=== PATIENT | female | born 1995 | race Caucasian/White ===

== ENCOUNTER 2021-10-09 10:11 | Outpatient (REF) | payer OTHER, SELFPAY ==
[2021-10-09 11:26] LABS: Appearance Urine CLEAR; Color Urine YELLOW; Glucose Urine UA NEG (NEG); Leukocyte Esterase Urine NEG (NEG); Nitrite Urine NEG (NEG); PH 5.5 (5.0-8.0); Specific Gravity - Urine >= 1.030 (1.005-1.025); Urine Blood NEG (NEG); Urine Ketones NEG (NEG); Urine Protein NEG (NEG-TRACE)
[2021-10-09 12:06] LABS: Alanine Aminotransferase 31 U/L (0-31); Albumin Level 4.4 g/dL (3.5-5.0); Alkaline Phosphatase 82 U/L (39-117); Anion Gap 14 (12-20); Aspartate Amino Transferase 30 U/L (5-31); Bilirubin Total 0.4 mg/dL (0.0-1.0); Blood Urea Nitrogen 12 mg/dL (9-16); Calcium 9.6 mg/dL (8.4-10.2); Carbon Dioxide 24 mmol/L (22-29); Chloride 107 mmol/L (96-108); Cholesterol 186 mg/dL; Estimated Glomerular Filt Rate > 60; Glucose Fasting 82 mg/dL (60-99); HDL Cholesterol 56 mg/dL; Iron 28 mcg/dL (30-160); LDL Cholesterol Calculated 117 mg/dl; Percent Iron Saturation 6 % (15-50); Potassium 4.9 mmol/L (3.3-5.1); Sodium 140 mmol/L (135-145); Total Iron Binding Capacity 482 mcg/dL (228-428); Total Protein 7.8 g/dL (6.5-8.0); Triglycerides 68 mg/dL; Unsaturated Iron Binding 454 ug/dL
[2021-10-09 12:10] LABS: TSH reflex Free T4 1.31 uIU/mL (0.32-4.0)
== END 2021-10-09 10:12 | disposition home or self-care (01) ==
LOC: HO.LAB 10:11
PROVIDERS: PCP Family Medicine; Visit Provider Family Medicine
DX: Z00.00 Encounter for general adult medical examination without abnormal findings (principal); E66.01 Morbid (severe) obesity due to excess calories
CPT/HCPCS: 36415; 80053; 80061; 81003; 83540; 84443

== ENCOUNTER 2021-10-28 17:21 | Outpatient (REF) | payer OTHER, SELFPAY ==
--- NOTE | ~2021-10-28 | XR_ITS ---
EXAMINATION: XR ABDOMEN KUB CLINICAL INDICATION: Diarrhea COMPARISON: None TECHNIQUE: AP view of the abdomen. FINDINGS: The bowel gas pattern is normal with no evidence of ileus or obstruction. No unusual soft tissue calcifications are noted. The bones are unremarkable. XR/XR KUB IMPRESSION: Unremarkable examination.
--- NOTE | ~2021-10-28 | XR_ITS ---
EXAMINATION: BILATERAL KNEE X-RAY CLINICAL INFORMATION: Pain COMPARISON: None TECHNIQUE: 2 views of each knee FINDINGS: Left: Bone alignment is normal. No fracture or dislocation is seen. The joint spaces are normal. There is no joint effusion. Right: Bone alignment is normal. No fracture or dislocation is seen. The joint spaces are normal. There is no joint effusion. XR/XR knee RT 2V IMPRESSION: Normal knees.
--- NOTE | ~2021-10-28 | XR_ITS ---
EXAMINATION: BILATERAL KNEE X-RAY CLINICAL INFORMATION: Pain COMPARISON: None TECHNIQUE: 2 views of each knee FINDINGS: Left: Bone alignment is normal. No fracture or dislocation is seen. The joint spaces are normal. There is no joint effusion. Right: Bone alignment is normal. No fracture or dislocation is seen. The joint spaces are normal. There is no joint effusion. XR/XR knee LT 2V IMPRESSION: Normal knees.
--- NOTE | ~2021-10-28 | XR_ITS ---
EXAMINATION: XR HIP, RIGHT CLINICAL INFORMATION: Pain COMPARISON: None TECHNIQUE: Two views of the right hip. FINDINGS: Bone alignment is normal. No fracture or dislocation is seen. There is a small soft tissue calcification or ossification adjacent to the superior lateral right hip joint. Joint spaces otherwise normal. Soft tissues are otherwise normal. XR/XR hip RT min 2V IMPRESSION: Small soft tissue calcification or ossification adjacent to the superior lateral hip joint.
== END 2021-10-28 17:22 | disposition home or self-care (01) ==
LOC: HO.XRAY 17:21
PROVIDERS: PCP Family Medicine; Visit Provider Family Medicine
DX: M25.561 Pain in right knee (principal); M25.562 Pain in left knee; M25.551 Pain in right hip; R19.7 Diarrhea, unspecified
CPT/HCPCS: 73502; 73560; 74018

== ENCOUNTER → 2021-11-03 07:52 | Outpatient (BNVA) | payer OTHER, SELFPAY | PROVIDERS: PCP Family Medicine; Referring Provider Family Medicine; Visit Provider Physician Assistant Surgical ==

== ENCOUNTER → 2021-11-19 07:48 | Outpatient (BNVA) | payer OTHER, SELFPAY | PROVIDERS: PCP Family Medicine; Visit Provider Surgery ==

== ENCOUNTER → 2021-12-10 08:33 | Outpatient (REF) | payer OTHER, SELFPAY ==
--- NOTE | 2021-12-10 08:39 | ECG_ITS ---
Test Reason : obesity Blood Pressure : / mmHG Vent. Rate : 086 BPM Atrial Rate : 086 BPM P-R Int : 150 ms QRS Dur : 100 ms QT Int : 352 ms P-R-T Axes : 058 047 032 degrees QTc Int : 421 ms Normal sinus rhythm Normal ECG No previous ECGs available Referred By: Claudio Gonzalez Electronically Signed By:WALT REYNOLDS
[2021-12-10 09:06] LABS: MANUAL DIFF FLAG NO
[2021-12-10 09:19] LABS: Basophils Percent Auto 0.4 % (0-2); Eosinophils Absolute Auto 0.2 X10*3/uL (0.0-0.4); Hematocrit 37.8 % (37.0-47.0); Hemoglobin 11.3 g/dl (12.0-16.0); Imm Gran Abs Auto 0.01 X10*3/uL (0.00-0.03); Imm Gran Pct Auto 0.2 % (0.0-0.4); Lymphocytes Absolute Auto 2.5 X10*3/uL (1.2-4.9); Lymphocytes Percent Auto 46.7 % (20-40); Mean Corpuscular HGB Conc 29.9 g/dl (31.0-35.0); Mean Corpuscular Hemoglobin 21.4 pg (27.0-33.0); Mean Corpuscular Volume 71.5 fL (80.0-98.0); Mean Platelet Volume 9.6 fL (9.4-12.3); Monocytes Absolute Auto 0.4 X10*3/uL (0.1-1.2); Monocytes Percent Auto 6.7 % (2-11); Neutrophils Absolute Auto 2.3 x10*3/uL (2.0-8.3); Platelet Count 370 X10*3/uL (160-400); Red Blood Count 5.29 X10*6/uL (4.20-5.50); Red Cell Distribution Width 18.8 % (11.0-16.0); White Blood Count 5.4 X10*3/uL (4.8-10.8)
[2021-12-10 09:40] LABS: Estimated Average Glucose 105 mg/dL; Hemoglobin A1c % 5.3 %
[2021-12-10 09:45] LABS: Alanine Aminotransferase 30 U/L (0-31); Albumin Level 4.3 g/dL (3.5-5.0); Alkaline Phosphatase 94 U/L (39-117); Anion Gap 13 (12-20); Aspartate Amino Transferase 26 U/L (5-31); Bilirubin Total 0.6 mg/dL (0.0-1.0); Blood Urea Nitrogen 9 mg/dL (9-16); C Reactive Protein 1.47 mg/dL (< or = 0.50); Calcium 9.9 mg/dL (8.4-10.2); Carbon Dioxide 24 mmol/L (22-29); Chloride 106 mmol/L (96-108); Cholesterol 195 mg/dL; Estimated Glomerular Filt Rate > 60; Glucose Random 96 mg/dL (60-115); HDL Cholesterol 49 mg/dL; Iron 33 mcg/dL (30-160); LDL Cholesterol Calculated 126 mg/dl; Percent Iron Saturation 7 % (15-50); Sodium 139 mmol/L (135-145); Total Iron Binding Capacity 472 mcg/dL (228-428); Total Protein 7.8 g/dL (6.5-8.0); Triglycerides 103 mg/dL; Unsaturated Iron Binding 439 ug/dL
[2021-12-10 10:08] LABS: Vitamin D 25-OH Total 10.4 ng/mL (>30)
[2021-12-10 10:09] LABS: Ferritin 10 ng/mL (10-122); Insulin 15 uU/mL (2-29)
[2021-12-10 10:13] LABS: Folate 12.3 ng/mL (> or = 4.0); Vitamin B12 628 pg/mL (200-900)
[2021-12-11 14:48] LABS: H Pylori Breath Test Negative (Negative)
[2021-12-11 16:16] LABS: Calcium (PTHI) 9.8 mg/dL (8.6-10.2); PTHI 51 pg/mL (14-64)
[2021-12-14 01:50] LABS: Zinc 71 mcg/dL (60-130)
[2021-12-14 11:58] LABS: Vitamin B1 14 nmol/L (8-30)
[2021-12-15 12:42] LABS: Vitamin A 34 mcg/dL (38-98)
== END ==
LOC: HO.CARD 08:33
PROVIDERS: PCP Family Medicine; Visit Provider Surgery
DX: E66.01 Morbid (severe) obesity due to excess calories (principal)
CPT/HCPCS: 36415; 80053; 80061; 82306; 82607; 82728; 82746; 83013; 83036; 83525; 83540; 83970; 84425; 84443; 84590; 84630; 85025; 86140; 93005; 99211

== ENCOUNTER → 2021-12-15 08:02 | Outpatient (BNVA) | payer OTHER, SELFPAY | PROVIDERS: PCP Family Medicine; Visit Provider Surgery ==

== ENCOUNTER → 2021-12-16 08:06 | Outpatient (BNVA) | payer OTHER, SELFPAY | PROVIDERS: PCP Family Medicine; Visit Provider Dietitian, Registered ==

== ENCOUNTER → 2021-12-17 08:03 | Outpatient (BNVA) | payer OTHER, SELFPAY | PROVIDERS: PCP Family Medicine; Visit Provider Dietitian, Registered | DX: E66.01 Morbid (severe) obesity due to excess calories (principal); Z68.41 Body mass index [BMI] 40.0-44.9, adult | CPT/HCPCS: 97802 ==

== ENCOUNTER → 2022-01-07 13:59 | Outpatient (BNVA) | payer OTHER, SELFPAY | PROVIDERS: PCP Family Medicine; Visit Provider Counselor Mental Health | DX: E66.01 Morbid (severe) obesity due to excess calories (principal); F41.1 Generalized anxiety disorder; Z90.49 Acquired absence of other specified parts of digestive tract; Z88.1 Allergy status to other antibiotic agents; Z88.0 Allergy status to penicillin; Z88.8 Allergy status to other drugs, medicaments and biological substances | CPT/HCPCS: 90834 ==

== ENCOUNTER 2022-01-12 08:33 | Outpatient (REF) | payer OTHER, SELFPAY ==
--- NOTE | ~2022-01-12 | XR_ITS ---
EXAMINATION: XR CHEST CLINICAL INFORMATION: Obesity COMPARISON: Previous chest x-ray February 2016 TECHNIQUE: 2 views of the chest were obtained. FINDINGS: No significant abnormality is noted involving the heart, lungs, mediastinum, bony thorax or soft tissues. XR/XR chest 2V IMPRESSION: Unremarkable examination.
--- NOTE | ~2022-01-12 | FL_ITS ---
EXAMINATION: XR FLUOROSCOPY UPPER GI WITH AIR CLINICAL INFORMATION: Morbid/severe obesity due to excess calories. COMPARISON: None TECHNIQUE: Routine upper GI air-contrast study was performed in upright standing and lying positions. FINDINGS: Following oral administration of thick barium and effervescent granules, there is normal propagation of bolus from the oral cavity through the pharynx and esophagus and into the stomach without any evidence of obstruction, narrowing or stricture. On placing patient supine and prone lying, the course, caliber and peristalsis of the stomach duodenal bulb and the sweep are normal. The mucosal pattern of the stomach, duodenal bulb and the sweep is normal. There is moderate gastroesophageal reflux without hiatal hernia in lying position. There is evidence of previous cholecystectomy. FLUOROSCOPY TIME: 1.7 minutes DOSE AREA PRODUCT: 26.870 uGy-m2 (microgray-meter squared) FL/FL upper GI w air IMPRESSION: Moderate gastroesophageal reflux without hiatal hernia. The rest of the upper GI air-contrast study is unremarkable. There is evidence of previous cholecystectomy.
--- NOTE | ~2022-01-12 | US_ITS ---
EXAMINATION: US COMPLETE ABDOMEN WITH LIVER ELASTOGRAPHY CLINICAL INFORMATION: Obesity COMPARISON: None. TECHNIQUE: Real-time imaging of the abdominal viscera. Noninvasive ultrasound liver fibrosis assessment is performed using Humza ElastPQ point quantification shear wave elastography (2D-SWE) with a C5-2 MHz transducer. Multiple elastography samples are obtained. FINDINGS: PANCREAS: Normal. ABDOMINAL AORTA: The proximal, middle, and distal aortic segments are normal in caliber. INFERIOR VENA CAVA: Visualized portions are normal. LIVER: Liver echotexture is slightly increased. The liver demonstrates normal size and contour. No focal lesion or intrahepatic biliary duct dilatation. The right lobe measures 17 cm in length. The left lobe measures 14 cm in length. Portal flow is normal/hepatopedal Shear wave liver elastography median stiffness is 1.7 m/s (reference: normal median stiffness is 1.3 m/s or less). IQR/median stiffness to assess sampling precision is 0.05 (reference: good quality data set is IQR/median stiffness of 0.15 or less). GALLBLADDER: Surgically removed COMMON BILE DUCT: Normal in caliber measuring 0.3 cm in diameter. RIGHT KIDNEY: Normal. No hydronephrosis. No renal calculi or focal parenchymal lesions. The kidney measures 11 cm in maximum dimension. LEFT KIDNEY: Normal. No hydronephrosis. No renal calculi or focal parenchymal lesions. The kidney measures 11.6 cm in maximum dimension. SPLEEN: Normal. The spleen measures 11: Slightly echogenic liver probably representing fatty infiltration. cm in maximum dimension. FREE FLUID: None. US/US abdomen comp w elastography IMPRESSION: 1. Impression: Slightly echogenic liver probably representing fatty infiltration 2. Liver elastography: Adequate liver sampling. Borderline elevated liver stiffness. REFERENCE: Society of Radiologists in Ultrasound Liver Stiffness Thresholds (2020): LIVER STIFFNESS THRESHOLDS: *Liver Stiffness equal or less than 1.3 m/s: High probability of being normal. *Liver Stiffness less than 1.7 m/s: In the absence of other known clinical signs, rules out compensated advanced chronic liver disease. *Liver Stiffness 1.7-2.1 m/s: Suggestive of compensated advanced chronic liver disease but need further test for confirmation. *Liver Stiffness over 2.1 m/s: Rules in compensated advanced chronic liver disease. *Liver Stiffness over 2.4 m/s: Suggestive of clinically significant portal hypertension. QUALITY OF DATA SET: *IQR/Median value equal or less than 0.15 implies a quality data set. *IQR/Median value over 0.15 implies a poor quality data set. SIGNIFICANT CHANGE FROM PRIOR EXAM: Significant change if liver stiffness measurement is 10% or greater from prior exam. OTHER CONSIDERATIONS: The stage of liver fibrosis may be overestimated in the setting of acute hepatitis, liver inflammation, elevated liver function tests, hepatic vascular congestion, obstructive cholestasis, non-fasting state, and infiltrative diseases such as amyloidosis and lymphoma. In some patients with NAFLD, the liver stiffness thresholds for compensated advanced chronic liver disease may be lower. In causes other than viral hepatitis and NAFLD, liver stiffness thresholds are not well established.
== END 2022-01-12 08:34 | disposition home or self-care (01) ==
LOC: HO.US 08:33
PROVIDERS: PCP Family Medicine; Visit Provider Surgery
DX: E66.01 Morbid (severe) obesity due to excess calories (principal)
CPT/HCPCS: 71046; 74246; 76705; 76981

== ENCOUNTER → 2022-01-16 08:36 | Outpatient (BNVA) | payer OTHER, SELFPAY | PROVIDERS: PCP Family Medicine; Visit Provider Surgery ==

== ENCOUNTER → 2022-02-16 08:15 | Outpatient (BNVA) | payer OTHER, SELFPAY | PROVIDERS: PCP Family Medicine; Visit Provider Surgery | DX: Z13.89 Encounter for screening for other disorder (principal) ==

== ENCOUNTER → 2022-02-27 12:56 | Outpatient (BNVA) | payer OTHER, SELFPAY | PROVIDERS: PCP Family Medicine; Visit Provider Surgery | DX: Z13.89 Encounter for screening for other disorder (principal) ==

== ENCOUNTER 2022-03-03 12:57 | Inpatient (IN) | payer OTHER, SELFPAY ==
[2022-02-17 10:55] VITALS: BMI 41.9
[2022-02-25 09:12] LABS: MANUAL DIFF FLAG NO
[2022-02-25 09:27] LABS: Basophils Percent Auto 0.4 % (0-2); Eosinophils Absolute Auto 0.2 X10*3/uL (0.0-0.4); Eosinophils Percent Auto 4.1 % (0-4); Hematocrit 42.5 % (37.0-47.0); Hemoglobin 12.7 g/dl (12.0-16.0); Imm Gran Abs Auto 0.01 X10*3/uL (0.00-0.03); Imm Gran Pct Auto 0.2 % (0.0-0.4); Lymphocytes Absolute Auto 1.7 X10*3/uL (1.2-4.9); Lymphocytes Percent Auto 36.8 % (20-40); Mean Corpuscular HGB Conc 29.9 g/dl (31.0-35.0); Mean Corpuscular Hemoglobin 22.4 pg (27.0-33.0); Mean Platelet Volume 9.8 fL (9.4-12.3); Monocytes Absolute Auto 0.4 X10*3/uL (0.1-1.2); Monocytes Percent Auto 8.3 % (2-11); Neutrophils Absolute Auto 2.4 x10*3/uL (2.0-8.3); Neutrophils Percent Auto 50.2 % (45-73); Platelet Count 319 X10*3/uL (160-400); Red Blood Count 5.67 X10*6/uL (4.20-5.50); Red Cell Distribution Width 18.5 % (11.0-16.0); White Blood Count 4.7 X10*3/uL (4.8-10.8)
[2022-02-25 09:36] LABS: Estimated Average Glucose 100 mg/dL; Hemoglobin A1c % 5.1 %
[2022-02-25 09:38] LABS: INTERNATIONAL NORM RATIO 1.1 (0.9-1.1); Prothrombin Time 12.1 SEC (9.9-13.0)
[2022-02-25 09:40] LABS: Partial Thromboplastin Time 39.2 SEC (24.1-38.0)
[2022-02-25 09:50] LABS: Alanine Aminotransferase 25 U/L (0-31); Albumin Level 4.6 g/dL (3.5-5.0); Alkaline Phosphatase 73 U/L (39-117); Anion Gap 14 (12-20); Aspartate Amino Transferase 27 U/L (5-31); Bilirubin Total 0.5 mg/dL (0.0-1.0); Blood Urea Nitrogen 7 mg/dL (9-16); C Reactive Protein 1.66 mg/dL (< or = 0.50); Carbon Dioxide 24 mmol/L (22-29); Chloride 105 mmol/L (96-108); Cholesterol 184 mg/dL; Creatinine Clr Calc Pharmacy 122.6; Estimated Glomerular Filt Rate > 60; Glucose Random 90 mg/dL (60-115); HDL Cholesterol 45 mg/dL; LDL Cholesterol Calculated 123 mg/dl; Sodium 139 mmol/L (135-145); Total Protein 8.2 g/dL (6.5-8.0); Triglycerides 81 mg/dL
[2022-02-25 10:13] LABS: Insulin 13 uU/mL (2-29); TSH reflex Free T4 2.27 uIU/mL (0.32-4.0)
--- NOTE | 2022-02-27 23:51 | P.HPSUR_ITS ---
Pre-Procedural Eval Section A Date of Service: 02/27/22 The patient is an INPATIENT: Yes Section B Chief Complaint: obesity Relevant Family History (Specify if Yes): No Relevant Social History: None Present Medications: None Medical History: No relevant PMH History of Previous Operations: No relevant previous surgery Allergies: Allergies Allergy/AdvReac Type Severity Reaction Status Date / Time Penicillins [PENICILLINS] Allergy Intermediate HIVES Verified 02/17/22 10:45 ondansetron [From ZOFRAN] Allergy Mild HIVES Verified 02/17/22 10:45 penicillin V Allergy Unknown hives Verified 02/16/22 13:10 Review of Systems Sugical H&P ROS: Negative: Constitution, Cardiovascular, Respiratory, Neurological, Psychiatric, Hem-Onc, Allergic/Immunologic, Gastrointestinal, Genitourinary, Musculoskeletal, Integumentary, Endocrine and Eyes/ Ears/Nose/Throat Exam Surgical H&P Exam: Normal: HEENT, Normal: Heart, Normal: Lungs, Normal: Extremities, Normal: Abdomen, Normal: Skin and Normal: Neurological Plan Diagnosis/Plan: Unchanged I have reviewed the history and physical and performed a pertinent physical examination on my patient. No changes have occurred unless specified.
--- NOTE | 2022-03-02 08:23 | HO.ANESPROP2 ---
Documented by User: Tiffanie Salas NP 03/02/22 08:24 HPI - Anesthesia Eval Consult details Narrative: 26yo F for Gastrectomy Sleeve,EGD,possible Diaphragmatic hernia,possible ventral hernia,possible open PMFSH Active Problems Active Problems: All Active Problems (Updated 02/17/22 @ 15:07 by Shu Ellison) Generalized anxiety disorder (Acute) Laboratory exam ordered as part of routine general medical examination (Acute) Diarrhea (Acute) Anxiety (Acute) Obesity, morbid, BMI 40.0-49.9 (Acute) Hip pain (Acute) Back pain (Acute) Bilateral knee pain (Acute) Right hip pain (Acute) Left ear pain (Acute) Adult general medical exam (Acute) Low iron (Acute) Chest pain (Acute) Screening for cervical cancer (Acute) Anemia (Acute) Vitamin D deficiency (Acute) Nausea (Acute) Morbid obesity (Acute) Past Medical History Medical History (Updated 02/17/22 @ 15:07 by Shu Ellison) GERD (gastroesophageal reflux disease) Low back pain Morbid obesity Family History Family History (Updated 11/19/21 @ 08:22 by Massimo Whitaker Letitia) Brother Mental health disorder Mother No problems noted. Father No problems noted. Brother Hypertension Son No problems noted. Daughter No problems noted. Surgical History Surgical History (Updated 02/17/22 @ 10:46 by Terri Parker RN) History of cholecystectomy History of wisdom tooth extraction Social History Social History (Updated 11/19/21 @ 08:23 by ALICE Doty) Household Members: Children Housing: Apartment Are you a primary clinical care coordinator to a significant other at home: Yes (8 month old baby) Do you presently have visiting nurse or other home services: No Alcohol intake: current Alcohol intake frequency: does not drink Patient Tobacco Use Status: Never used Tobacco e-Cigarette/Vaping Use: Never Used Second Hand Smoke Exposure: No service: No Current occupational status: employed Gender identity: Female Cognitive needs: No Hearing needs: No Vision needs: Yes (Glasses) Meds Allergies Allergy/AdvReac Type Severity Reaction Status Date / Time Penicillins [PENICILLINS] Allergy Intermediate HIVES Verified 02/17/22 10:45 ondansetron [From ZOFRAN] Allergy Mild HIVES Verified 02/17/22 10:45 penicillin V Allergy Unknown hives Verified 02/16/22 13:10 Home Medications Medication Instructions Recorded Confirmed Last Taken Type ferrous sulfate 325 mg (65 mg 325 mg PO DAILY 11/20/21 02/16/22 2 Weeks Ago History iron) tablet ~02/17/22 Exam Exam Date and Time: March 02, 2022822 Height,Weight and Vital Signs: Height 5 ft 2.5 in Weight 105.687 kg Pertinent Lab Results Pertinent Lab Results: Laboratory Tests 02/25/22 02/25/22 02/25/22 09:03 09:11 09:11 WBC 4.7 L RBC 5.67 H Hgb 12.7 Hct 42.5 MCV 75.0 L MCH 22.4 L MCHC 29.9 L RDW 18.5 H Plt Count 319 MPV 9.8 Immature Gran % (Auto) 0.2 Neut % (Auto) 50.2 Lymph % (Auto) 36.8 Norman % (Auto) 8.3 Eos % (Auto) 4.1 H Baso % (Auto) 0.4 Lymph # (Auto) 1.7 Norman # (Auto) 0.4 Eos # (Auto) 0.2 Baso # (Auto) 0.0 Abs Immat Gran (auto) 0.01 Absolute Neuts (auto) 2.4 Absolute Nucleated RBC 0.000 Nucleated RBC % (auto) 0.0 PT 12.1 INR 1.1 APTT 39.2 H Sodium Potassium Chloride Carbon Dioxide Anion Gap BUN Creatinine Estim Creat Clear Calc Estimated GFR Random Glucose Estimat Average Glucose Hemoglobin A1c % Insulin Level Calcium Total Bilirubin AST ALT Alkaline Phosphatase C-Reactive Protein Total Protein Albumin Triglycerides Cholesterol LDL Cholesterol, Calc HDL Cholesterol TSH Blood Type O Positive Antibody Screen NEGATIVE 02/25/22 02/25/22 09:11 09:11 WBC RBC Hgb Hct MCV MCH MCHC RDW Plt Count MPV Immature Gran % (Auto) Neut % (Auto) Lymph % (Auto) Norman % (Auto) Eos % (Auto) Baso % (Auto) Lymph # (Auto) Norman # (Auto) Eos # (Auto) Baso # (Auto) Abs Immat Gran (auto) Absolute Neuts (auto) Absolute Nucleated RBC Nucleated RBC % (auto) PT INR APTT Sodium 139 Potassium 4.0 Chloride 105 Carbon Dioxide 24 Anion Gap 14 BUN 7 L Creatinine 0.78 Estim Creat Clear Calc 122.6 Estimated GFR > 60 Random Glucose 90 Estimat Average Glucose 100 Hemoglobin A1c % 5.1 Insulin Level 13 Calcium 10.0 Total Bilirubin 0.5 AST 27 ALT 25 Alkaline Phosphatase 73 D C-Reactive Protein 1.66 H Total Protein 8.2 H Albumin 4.6 Triglycerides 81 Cholesterol 184 LDL Cholesterol, Calc 123 HDL Cholesterol 45 TSH 2.27 Blood Type Antibody Screen Narrative Narrative: EKG 11/2021 Vent. Rate : 086 BPM ? ? Atrial Rate : 086 BPM ?? P-R Int : 150 ms? QRS Dur : 100 ms ? ? QT Int : 352 ms ? ? ? P-R-T Axes : 058 047 032 degrees ?? QTc Int : 421 ms ? Normal sinus rhythm Normal ECG No previous ECGs available Assessment and Plan Assessment Anesthesia Assessment: Chart Reviewed Documented by User: Laci Lee MD 03/03/22 10:33 [facility] Past Medical History Medical History (Updated 02/17/22 @ 15:07 by Shu Ellison) GERD (gastroesophageal reflux disease) Low back pain Morbid obesity Family History Family History (Updated 11/19/21 @ 08:22 by ALICE Doty) Brother Mental health disorder Mother No problems noted. Father No problems noted. Brother Hypertension Son No problems noted. Daughter No problems noted. Family history of problems with anesthesia: No Surgical History Surgical History (Updated 02/17/22 @ 10:46 by Terri Parker RN) History of cholecystectomy History of wisdom tooth extraction History of Problems with Anesthesia: No Social History Social History (Updated 11/19/21 @ 08:23 by ALICE Doty) Household Members: Children Housing: Apartment Are you a primary clinical care coordinator to a significant other at home: Yes (8 month old baby) Do you presently have visiting nurse or other home services: No Alcohol intake: current Alcohol intake frequency: does not drink Patient Tobacco Use Status: Never used Tobacco e-Cigarette/Vaping Use: Never Used Second Hand Smoke Exposure: No service: No Current occupational status: employed Gender identity: Female Cognitive needs: No Hearing needs: No Vision needs: Yes (Glasses) Meds Allergies Allergy/AdvReac Type Severity Reaction Status Date / Time Penicillins [PENICILLINS] Allergy Intermediate HIVES Verified 02/17/22 10:45 ondansetron [From ZOFRAN] Allergy Mild HIVES Verified 02/17/22 10:45 penicillin V Allergy Unknown hives Verified 02/16/22 13:10 Home Medications Medication Instructions Recorded Confirmed Last Taken Type ferrous sulfate 325 mg (65 mg 325 mg PO DAILY 11/20/21 02/16/22 2 Weeks Ago History iron) tablet ~02/17/22 Exam Airway Mallampati Class: II TM Dist: >3cm Neck ROM: Full Loose/Missing/Broken Teeth: No Heart: rrr+[id number] Lungs: cta b/l Assessment and Plan Assessment Anesthesia Assessment: Anesthesia Plan Discussed Final Anesthetic Review Family History of Problems with Anesthesia: No History of Problems with Anesthesia: No NPO: Yes ASA Class: II Final Preanesthetic Review: No Changes in Pt Med Stat, Meds/Allgs Chart Reviewed, Consent Obtained/Reviewed and Anes Risks/Benef Reviewed Patient Risk: Intermediate Procedure Risk: Intermediate Assessment/Block/Sedation in SS: Assess/Block/Sedation-SS Anesthetic Plan Anesthetic Plan: GA and Agree w/ Assess. and Plan Disposition: Standard PACU
[2022-03-02 13:40] LABS: COVID-19 Test Negative (Negative); IDNOW Serial# 16C4AD1C
[2022-03-03] VITALS (17 sets, daily range): BP systolic 103–168; BP diastolic 73–101; PULSE 69–112; RESP 16–20; TEMP 36.4–37.7; O2SAT 98–100
[2022-03-03 08:41] LABS: UPreg QC Valid YES; Urine Pregnancy NEGATIVE (NEGATIVE)
[2022-03-03] MEDS: levoFLOXacin/D5W 500 MG/100 ML PIGGYBACK 100 MG IV (10:33)
--- NOTE | 2022-03-03 10:39 | P.BOP_ITS ---
Brief Operative Note Date of Service: 03/03/22 Pre-op diagnosis: Morbid obesity and comorbidities (see below) Post-op diagnosis: same Procedure: INITIAL PATIENT BMI ON PRESENTATION AT OUR OFFICE: 44.6 kg/m2 LAST BMI BEFORE SURGERY: 41.1 kg/m2 COMORBIDITIES: anxiety, GERD, liver steatosis ?The patient presented to the Weight Management Program with significant obesity that was negatively impacting the patient's comorbidities as listed above.? The program is a phased program with a special focus on preoperative medical weight management to promote substantial weight loss and prepare the patients for the second phase of the program: bariatric surgery. The patient participated in an intensive weekly lifestyle ?intervention and exercise program during which the patient ?has lost between the initial office visit and the last preoperative visit 20.1 lbs, or 7.98% of initial actual body weight. It was deemed appropriate for the patient to now have bariatric surgery. In light of the current Covid-19 pandemic and the well documented strong association of obesity and increased risk of worse outcomes if infected with Covid-19 (REFERENCES: https://pubmed.ncbi.nlm.nih.gov/67424946/ ,? https://pubmed.ncb i.nlm.nih.gov/84036038/ ), any delay in undergoing bariatric surgery may lead to the patient's worsening health condition and increased?risk of more severe Covid-19 disease if infected. In addition a recent?study from [facility] published in [facility] on 11/24/2021 ([email or web address]/C:/[email or web address]) found that, among patients with obesity, substantial weight loss achieved with surgery was associated with improved outcomes of COVID-19 infection. The findings suggest that obesity can be a modifiable risk factor for the severity of COVID-19 infection. In addition, the patient met the BMI-criteria for bariatric surgery based on the BMI on initial presentation. The patient should not be penalized for achieving such weight loss because ?it is not sustainable long-term without surgical intervention and it was achieved in preparation for bariatric surgery ?under my direction and based on my published research (file :///[email or web address]).[email or web address] and? https://www.soard.org/article/E6573-8281(06)37036-X/pdf ) ?that a 10% preoperative weight loss improves long-term weight loss after surgery and reduces perioperative complications.? Insurance carriers such as [facility] have endorsed my recommendations ?and have included in their policies criteria to include a 10% preoperative weight loss requirement. PROCEDURE: Esophago-gastroscopy, laparoscopic sleeve gastrectomy and laparoscopic gastropexy INDICATIONS: This is a 26 year-old female who was electively scheduled for laparoscopic, possibly open sleeve gastrectomy. The risks and complications of the procedure were discussed with the patient in advance, particularly the possibility of ; pulmonary embolism; staple line leak; bleeding; GERD; cardiac, pulmonary, or renal complications; as well as long-term problems such as insufficient weight loss, vitamin deficiency, strictures, or ulcers. The patient understood all the risks, and was in agreement to proceed with surgery. DESCRIPTION OF PROCEDURE: After informed consent was obtained from the patient, the patient was given preoperative antibiotics, and was transferred to the operating room. After successful induction of general anesthesia, pneumatic compression devices were placed on both lower extremities. An upper endoscopy was performed next. The oropharynx and esophagus appeared to be within normal limits. There was no diaphragmatic hernia present consistent with the findings of the preoperative upper GI. The stomach was entered. Then after all fluid and air were suctioned and the stomach was fully decompressed, the scope was withdrawn and secured in the mid esophagus. The patient was then prepped and draped in the usual sterile manner, and abdominal access was established at the right upper quadrant with the Anatoliy technique. A 12 mm blunt port was inserted, and the abdomen was insufflated with CO2 to a pressure of 15 mmHg. Under direct visualization, additional ports were placed, specifically two 5 mm Versi-step ports to the left upper quadrant, and a 5 mm Versi-Step port to the right upper quadrant. 1% lidocaine plain was used to infiltrate all port sites as well as all fascia defects. Using the EndoClose suture passer device, I placed a #1 Polysorb tie across the falciform ligament in order to retract it up against the abdominal wall and prevent injury of the ligament with our instruments during the procedure. Following that, the patient was placed in a steep reverse Trendelenburg position. An additional 5 mm port was placed to the right flank for the Mediflex retractor that was used to retract the left lobe of the liver. The gastro-esophageal fat pad was opened with the ultrasonic device (Thunderbeat, Olympus) and the anterior esophagus and hiatus were exposed. The angle of His was opened with the ultrasonic device the fundus of the stomach from any diaphragmatic and splenic attachments. I then opened the gastrocolic ligament between the transverse colon and the greater curvature of the stomach with the ultrasonic device to enter the lesser sac and facilitate the ligation of the short gastric vessels. I started at a mid-point along the greater curvature and using the Thunderbeat, all short gastric vessels were divided all the way to the angle of His until the left carlos was completely dissected at its entirety. I then divided the gastro-colic ligament distally to a distance of about 3-4 cm proximal to the pylorus.? The stomach was then divided transversely with one Endo TRAV-45 purple, two TRAV- 45 orange loads and two TRAV-60 articulating orange loads using the AEON stapler and loads. Every effort was made that the gastric sleeve had a tubular shape and an even caliber throughout. Once the sleeve resection was completed, the staple line of the gastric sleeve was reinforced with Hemoclips. The resected stomach was retrieved without difficulty from the Anatoliy port. A gastropexy was then performed in order to prevent postoperative GERD and partial gastric volvulus. Several interrupted 2.0 Surgidac sutures were placed between the sleeve's staple line and the previously divided greater omentum and gastro-colic ligament using the Endo-Stitch device. ?An upper endoscopy was performed. There was no narrowing at the GE junction. The scope was easily advanced all the way to the pylorus which was clearly visualized. There was no narrowing anywhere and the sleeve's caliber was even throughout. The sleeve's staple line was inspected and there was no evidence of ischemia, bleeding or dehiscence. At that point the gastroscope was withdrawn from the patient?s mouth while we were decompressing the bowel and the stomach from any remaining air. I looked into the lesser sac to see how the sleeve was situating and it was situating well. There was no bleeding from the staple line, spleen, or short gastric vessels. The Mediflex retractor was removed, and the undersurface of the liver was inspected and there was no bleeding. The patient was placed in supine position. I closed the fascial defect of the 12 mm port site with a figure of eight #1 Polysorb suture. Then 100 cc 0.25 % Marcaine plain with 10 mg of Dexamethasone were used to infiltrate the fascial closure as well as all skin incisions. At this point, the abdomen was deflated, all ports were removed under direct vision, and no bleeding was noted from any of the port sites. The skin incisions were irrigated with saline and were closed with 4-0 absorbable monofilament sutures. Steri-Strips and OpSites were used to cover all incisions. The patient was extubated and was transferred in stable condition to the recovery room for further care. I was present and performed all miller parts of the procedure. Ms. Priceson was the medical assistant secretary. There were no residents to assist with this case. Chaim Gonzalez MD, PhD, FACS Surgeon: Claudio Gonzalez MD Anesthesia: GETA, local and other (TAP block) Was an Assembler Piano used for this Procedure?: No Assembler Piano: Lilian Simons Estimated blood loss (mL): 10 IV fluids (mL): 3,000 Urine output (mL): 0 (No Yoon to gravity) Pathology: other (Stomach) Condition: stable Disposition: PACU
--- NOTE | 2022-03-03 10:41 | PM.PNGS ---
Subjective Subjective Date of Service: 03/04/22 Interval history: Patient has mild incisional pain, but was able to ambulate and use the incentive spirometer. She is tolerating phase 1 bariatric diet Physical Exam Vital Signs: Vital Signs: Last Vital Signs Temp 97.7 F 03/03/22 08:20 Pulse 88 03/03/22 08:20 Resp 17 03/03/22 08:20 BP 103/73 03/03/22 08:20 Pulse Ox 99 03/03/22 08:20 BMI result Body Mass Index 41.9 GI: Inspection: Yes normal to inspection, Yes incision (clean, dry and intact) and Yes obesity Extrem: Right lower extremity: normal to inspection (no calf tenderness) Left lower extremity: normal to inspection (no calf tenderness) Objective Data Active Medications Fentanyl (Fentanyl Citrate/Pf 100 Mcg/2 Ml Vial) 50 mcg IVPUSH Q5M PRN; Protocol PRN Reason: Pain, Moderate (Pain Scale 4-6 Hydromorphone HCl (Hydromorphone Hcl 0.5 Mg/0.5 Ml Syringe) 0.5 mg IVPUSH Q5M PRN; Protocol PRN Reason: Pain, Severe (Pain Scale 7-10) Lactated Ringer's (Lr) 1,000 mls @ 100 mls/hr IVCONT .Q10H MIKAELA Promethazine HCl 6.25 mg/ (Sodium Chloride) 50.25 mls @ 201 mls/hr IV ONCE PRN PRN Reason: Nausea and Vomiting Oxycodone HCl (Oxycodone Hcl Immed Release 5 Mg Tablet) 10 mg PO ONCE PRN PRN Reason: Pain, Mild (Pain Scale 1-3) Labs CBC & Chem 7: 03/04/22 05:29 03/04/22 05:29 Labs: Laboratory Results - last 24 hr 03/02/22 03/03/22 12:58 07:40 Urine Test NEGATIVE COVID-19 (SAJAN) Negative COVID-19 Clin Com See Note Procedures Date of Service Date of Service: 03/04/22 Progress Note: A&P Assessment and plan (1) Morbid obesity: Status: Acute Assessment and Plan: s/p laparoscopic sleeve gastrectomy, lysis of adhesions repair of diaphragmatic hernia, and gastropexy Doing well Check am labs. If OK, will discharge home? (2) Anxiety: Status: Acute (3) Back pain: Status: Acute (4) Hip pain: Status: Acute (5) Generalized anxiety disorder: Status: Acute (6) GERD (gastroesophageal reflux disease): Status: Acute (7) Steatosis, liver: Status: Acute (8) Status post sleeve gastrectomy: Status: Acute Fall Risk Details Current Medications: Current Medications Fentanyl (Fentanyl Citrate/Pf 100 Mcg/2 Ml Vial) 50 mcg IVPUSH Q5M PRN; Protocol PRN Reason: Pain, Moderate (Pain Scale 4-6 Hydromorphone HCl (Hydromorphone Hcl 0.5 Mg/0.5 Ml Syringe) 0.5 mg IVPUSH Q5M PRN; Protocol PRN Reason: Pain, Severe (Pain Scale 7-10) Lactated Ringer's (Lr) 1,000 mls @ 100 mls/hr IVCONT .Q10H MIKAELA Promethazine HCl 6.25 mg/ (Sodium Chloride) 50.25 mls @ 201 mls/hr IV ONCE PRN PRN Reason: Nausea and Vomiting Oxycodone HCl (Oxycodone Hcl Immed Release 5 Mg Tablet) 10 mg PO ONCE PRN PRN Reason: Pain, Mild (Pain Scale 1-3) Time Spent With Patient Time: Total time spent is greater than 50% in coordination of care (as documented) at patient's floor/unit and/or counseling patient: Quality Stroke Does the patient have a stroke diagnosis?: No VTE Prior VTE?: No VTE Risk Level:: Surgical - moderate VTE Device Contraindication: N/A - Device Ordered VTE Drug Contraindication: Treatment Not Indicated
--- NOTE | 2022-03-03 13:00 | P.DS_ITS ---
DS: Providers Provider Date of Service: 03/04/22 Primary care physician: Mil Babin MD DS: Diagnosis Discharge Diagnosis (1) Morbid obesity: Status: Acute (2) Anxiety: Status: Acute (3) Back pain: Status: Acute (4) Hip pain: Status: Acute (5) Generalized anxiety disorder: Status: Acute (6) GERD (gastroesophageal reflux disease): Status: Acute (7) Steatosis, liver: Status: Acute (8) Status post sleeve gastrectomy: Status: Acute DS: Summary Hospital Course Hospital Course: ADMITTING DIAGNOSIS: morbid obesity, anxiety DISCHARGE DIAGNOSIS: same, s/p laparoscopic sleeve gastrectomy PAST SURGICAL HISTORY: cholecystectomy PROCEDURE: upper endoscopy, laparoscopic sleeve gastrectomy DISCHARGE SUMMARY: History of Present Illness: The patient is a 26 year-old woman with a BMI of 44.6 kg/m2 and associated co- morbidities as described above. The patient had extensive work-up,lost 18.6lbs preoperatively and was electively scheduled for laparoscopic, possible open sleeve gastrectomy and gastropexy. Risks and complications of the surgery were discussed with the patient in advance, particularly the possibility of , pulmonary embolism, anastomotic leak, bleeding, bowel injury, GERD, cardiac, renal or pulmonary complications. The patient understood all the risks and was in agreement with the surgical plan. Hospital Course: The patient underwent an uneventful laparoscopic sleeve gastrectomy with gastropexy on the day of admission. Postoperatively, the patient was transferred to the surgical floor. The patient received IV Acetaminophen and IV dilaudid for pain control. Patient was started on bariatric phase 1 diet POD #0. On postoperative day one, the patient was feeling well without nausea, vomiting, fevers, or tachycardia. The patient had some mild incisional pain and the abdomen was soft. On the morning of postoperative day one, the patient was continued on 1 ounce of water or ice every half hour. During the day, the patient did fairly well, having some incisional pain, but able to ambulate adequately and to tolerate liquids well. Since the patient is doing well, we decided that the patient was ready to be discharged. The patient was given instructions to follow-up with me next week and to call my office for any fever over 101, persistent abdominal pain, nausea, vomiting, GERD, symptoms of DVT such as calf tenderness, or leg swelling, or pulmonary embolism such as chest pain or shortness of breath. The patient was also instructed to drink 40-60 ounces of liquids per day using the 1-ounce cups. The patient had been given prescriptions for Tylenol for pain, Zofran prn for nausea, and pantoprazole and carafate previously. The patient was encouraged to ambulate and use the incentive spirometer. The patient was allowed to shower, but no baths, and encouraged to stay active at home. All of these instructions were given to the patient personally. All questions were answered and the patient understood all instructions, the instructions were also given to the patient in print. Time Spent with Patient Time attestation: Total time spent providing and/or coordinating discharge services: Discharge coordination time: Less than 30 minutes Quality: Safe Use of Opioids Does Pt have an Active Cancer Diagnosis on the Problem List?: No Quality: Stroke Does the patient have a stroke diagnosis?: No Physical Exam Vital Signs: Vital Signs: Last Vital Signs Temp 97.6 F 03/03/22 12:54 Pulse 112 H 03/03/22 12:54 Resp 16 03/03/22 12:54 BP 156/92 H 03/03/22 12:54 Pulse Ox 100 03/03/22 12:54 BMI result Body Mass Index 41.9 DS: Data Data Completed and Pending Pending studies at discharge: Pending at discharge 03/03/22 12:54 Surgical [PTH] Routine Labs on day of discharge: Laboratory Results - last 24 hr 03/02/22 03/03/22 12:58 07:40 Urine Test NEGATIVE COVID-19 (SAJAN) Negative COVID-19 Clin Com See Note Discharge Plan Discharge Patient Disposition: Home, Self-Care Discharge Diagnosis: S/P SLEEVE GASTRECTOMY Referrals: Mil Babin MD [Primary Care Provider] - 1 Week Discharge Medications: Continued citalopram 10 mg tablet 10 mg PO DAILY 30 Days Qty: 30 1RF sucralfate 100 mg/mL suspension 10 ml PO BID Qty: 400 2RF ondansetron HCl 4 mg tablet 4 mg PO Q12H Qty: 20 0RF pantoprazole 40 mg tablet,delayed release (DR/EC) 40 mg PO DAILY Qty: 30 2RF Discontinued cholecalciferol (vitamin D3) 125 mcg (5,000 unit) capsule 125 mcg PO DAILY Qty: 30 2RF Vitron-C 65 mg iron- 125 mg tablet,delayed release (DR/EC) 1 tab PO DAILY 0RF polyethylene glycol 3350 [Miralax] 17 gram powder in packet 17 g PO DAILY Qty: 14 0RF Rx Instructions: Mix each packet with 8oz of water and do 7 packets on 03/01/22 and another 7 packets on 03/02/22 Discharge Orders: Discharge Order (Routine); Ordered 03/04/22 Ordered By: Claudio Gonzalez Diet: other Activity on Discharge: No heavy lifting Stand Alone Forms: Patient Portal Discharge page Care Plan Goals: WEIGHT LOSS Health Concerns: MORBID OBESITY Plan of Treatment: No tub baths, sex or returning to work until discussed at first post op appointment. No exercise, alcohol, tobacco or illegal drug use. Continue to use incentive spirometer hourly while awake. Walk in home for 5- 10 minutes every 2 hours during the first week. Continue phase 1 diet today and start phase 2 diet tomorrow morning. Follow all instructions in the bariatric handbook and call with any questions. 1. Please call your doctor or come back to the emergency room should any new symptoms arise. 2. You will receive a courtesy call from [facility] 24-48 hours after discharge. 3. Activity: abstain from alcohol, practice limited stair climbing, no bending, no driving, no exercise, no illicit substances, no lifting, no sex, no tub bath, no work. 4. Diet: continue as discussed with Dr. Gonzalez. 5. Dressing Change/Wound Care: Do not change or remove surgical dressings unless they are wet or soiled. 6. Call your doctor if: - Your temperature exceeds 101.5 F - You experience excessive pain or swelling - You have an unexpected reaction to medication - You have excessive bleeding - You experience continued vomiting/nausea - Your incision begins to separate - Your incision shows signs of infection such as increased redness, swelling, excessive pain, heat, or drainage (light blood or clear fluid is normal) 7. General instructions: No lifting greater than 5 lbs for the next 4 weeks[address] driving within 24 hours of taking narcotic pain medications. If you do not move your bowels in the next 2 days, please take milk of magnesia over the counter. Please follow the post op diet and do not advance your diet until you are seen in the office in about 2 weeks. Please walk around your home every hour or two to prevent blood clots from forming in your legs. You do not need to wake from sleeping to walk. Please sleep in a bed or couch to prevent kinking at the hips and knees. 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 You may shower, no hot tubs, baths or swimming pools. Please call the office with any questions or concerns such as increasing abdominal pain, fever, chills, shortness of breath, chest pain, leg pain or swelling, or redness or drainage from your incisions. Do not hesitate to contact the office with any questions at . The patient's medical history has been reviewed and they are considered low risk for post op DVT and therefore DVT prophylaxis is not considered necessary. Travel after surgery was reviewed. The patient has not disclosed any travel blaze ns during the first 30 days after surgery and they have been advised that within the first 30 days after surgery any bus, plane, train or car travel over 2 hours in duration is contraindicated due to the possibility of developing blood clots from immobility. Any travel, needs to include periods of ambulation of 10 minutes in duration every 2 hours. The patient was instructed to discuss any plans for travel during this period with their bariatric surgeon. Assessment: STABLE POST OP SLEEVE GASTRECTOMY
[2022-03-03] MEDS: HYDROmorphone HCl 0.5 MG/0.5 ML SYRINGE IVPUSH ×3 (13:11→13:40)
[2022-03-03] MEDS: Famotidine/PF 20 MG/2 ML VIAL IVPUSH ×2 (13:13→22:45)
[2022-03-03 13:53] LABS: Hematocrit 40.6 % (37.0-47.0); Hemoglobin 12.1 g/dl (12.0-16.0)
[2022-03-03 14:09] LABS: Anion Gap 17 (12-20); Blood Urea Nitrogen 5 mg/dL (9-16); Calcium 8.9 mg/dL (8.4-10.2); Carbon Dioxide 18 mmol/L (22-29); Chloride 106 mmol/L (96-108); Creatinine Clr Calc Pharmacy 138.6; Estimated Glomerular Filt Rate > 60; Glucose Random 90 mg/dL (60-115); Potassium 4.4 mmol/L (3.3-5.1); Sodium 137 mmol/L (135-145)
[2022-03-03] MEDS: Lactated Ringers 1,000 ML 100 ML IVCONT (14:38)
--- NOTE | 2022-03-03 14:39 | PHA.MEDREC ---
Pharmacy Consult ? Medication Reconciliation Pharmacy has completed the medication reconciliation.
[2022-03-03] MEDS: Metoclopramide HCl 10 MG/2 ML VIAL IVPUSH (18:35)
[2022-03-03] MEDS: HYDROmorphone HCl 0.5 MG/0.5 ML SYRINGE 0.25 MG IVPUSH (19:44)
[2022-03-04] MEDS: Lactated Ringers 1,000 ML 100 ML IVCONT (01:35)
[2022-03-04 03:17] VITALS: BP 142/86; PULSE 80; RESP 18; TEMP 36.4; O2SAT 100
[2022-03-04 05:55] LABS: MANUAL DIFF FLAG NO
[2022-03-04] MEDS: HYDROmorphone HCl 0.5 MG/0.5 ML SYRINGE 0.25 MG IVPUSH ×2 (06:00→11:33)
[2022-03-04 06:30] LABS: Anion Gap 19 (12-20); Blood Urea Nitrogen 5 mg/dL (9-16); Carbon Dioxide 15 mmol/L (22-29); Chloride 107 mmol/L (96-108); Creatinine Clr Calc Pharmacy 132.8; Estimated Glomerular Filt Rate > 60; Glucose Random 93 mg/dL (60-115); Potassium 4.7 mmol/L (3.3-5.1); Sodium 136 mmol/L (135-145)
[2022-03-04 06:33] LABS: Hematocrit 41.3 % (37.0-47.0); Hemoglobin 12.4 g/dl (12.0-16.0); Imm Gran Abs Auto 0.02 X10*3/uL (0.00-0.03); Imm Gran Pct Auto 0.3 % (0.0-0.4); Lymphocytes Absolute Auto 1.5 X10*3/uL (1.2-4.9); Lymphocytes Percent Auto 19.1 % (20-40); Mean Corpuscular Hemoglobin 22.3 pg (27.0-33.0); Mean Corpuscular Volume 74.3 fL (80.0-98.0); Mean Platelet Volume 10.3 fL (9.4-12.3); Monocytes Absolute Auto 0.6 X10*3/uL (0.1-1.2); Neutrophils Absolute Auto 5.5 x10*3/uL (2.0-8.3); Neutrophils Percent Auto 72.6 % (45-73); Platelet Count 349 X10*3/uL (160-400); Red Blood Count 5.56 X10*6/uL (4.20-5.50); Red Cell Distribution Width 18.9 % (11.0-16.0); White Blood Count 7.6 X10*3/uL (4.8-10.8)
[2022-03-04 06:39] LABS: Calcium 9.6 mg/dL (8.4-10.2)
[2022-03-04 06:51] VITALS: BP 134/77; PULSE 72; RESP 18; TEMP 36.1; O2SAT 99
--- NOTE | 2022-03-04 08:35 | MHC.CM.PN ---
PATIENT IS FULLY INDEPENDENT NO DME OR [facility] SERVICES IN THE HOME. PCP VERIFIED. SHE IS DC TODAY AND HAS TRANSPORTATION ARRNGED. RN AWARE OF PLAN.
[2022-03-04] MEDS: Famotidine/PF 20 MG/2 ML VIAL IVPUSH (10:17)
[2022-03-04 10:58] VITALS: BP 122/64; PULSE 58; RESP 16; TEMP 36.1; O2SAT 98
--- NOTE | 2022-03-04 14:34 | HO.POSTANES ---
Post Anesthesia Evaluation Post Anesthesia Evaluation Vital Signs: Vital Signs Temp Pulse Resp BP Pulse Ox 03/04/22 10:58 97 F 58 16 122/64 98 03/04/22 06:51 97 F 72 18 134/77 99 03/04/22 03:17 97.6 F 80 18 142/86 H 100 Anesthesia: General Endotracheal-GETA Mental Status: Awake Pain Control: Satisfactory Nausea/Vomiting: None Hydration: Adequate Anesthesia-Related Issues: No Anes. Related Issues
== END 2022-03-04 12:51 | disposition home or self-care (01) | DRG 403 ==
LOC: HO.SSSA 13:17 → HO.S3 18:30
PROVIDERS: Nurse Practitioner; Physician Assistant; Physician Assistant Surgical; Admitting Provider Surgery; PCP Family Medicine; Visit Provider Surgery
PROC: 0DB64Z3 Excision of Stomach, Percutaneous Endoscopic Approach, Vertical (ICD-10-PCS; CPT 43845; principal; 2022-03-03 10:10)
DX: E66.01 Morbid (severe) obesity due to excess calories (principal); K76.0 Fatty (change of) liver, not elsewhere classified; F41.9 Anxiety disorder, unspecified; Z68.41 Body mass index [BMI] 40.0-44.9, adult; K21.9 Gastro-esophageal reflux disease without esophagitis; M54.50 Low back pain, unspecified; Z20.822 Contact with and (suspected) exposure to COVID-19; Z88.0 Allergy status to penicillin; Z79.899 Other long term (current) drug therapy
CPT/HCPCS: 36415; 80048; 80053; 80061; 81025; 83036; 83525; 84443; 85014; 85018; 85025; 85610; 85730; 86140; 86850; 86900; 86901; 87635; 88307; 88342; 99024; A4649; J0131; J1100; J1170; J1956; J2250; J2370; J2405; J2550; J2765; J3010

== ENCOUNTER → 2022-03-10 14:36 | Outpatient (BNVA) | payer OTHER, SELFPAY | PROVIDERS: PCP Family Medicine; Referring Provider Family Medicine; Visit Provider Surgery | DX: E66.9 Obesity, unspecified (principal); Z68.37 Body mass index [BMI] 37.0-37.9, adult | CPT/HCPCS: 99212 ==

== ENCOUNTER → 2022-03-31 08:10 | Outpatient (BNVA) | payer OTHER, SELFPAY | PROVIDERS: PCP Family Medicine; Visit Provider Dietitian, Registered | DX: E66.9 Obesity, unspecified (principal); Z68.36 Body mass index [BMI] 36.0-36.9, adult; Z98.84 Bariatric surgery status; Z71.3 Dietary counseling and surveillance | CPT/HCPCS: 97803 ==

== ENCOUNTER → 2022-04-15 08:04 | Outpatient (BNVA) | payer OTHER, SELFPAY | PROVIDERS: PCP Family Medicine; Referring Provider Surgery; Visit Provider Dietitian, Registered | DX: E66.9 Obesity, unspecified (principal); Z68.36 Body mass index [BMI] 36.0-36.9, adult | CPT/HCPCS: 97803 ==

== ENCOUNTER → 2022-05-06 13:50 | Outpatient (BNVA) | payer OTHER, SELFPAY | PROVIDERS: PCP Family Medicine; Referring Provider Surgery; Visit Provider Dietitian, Registered | DX: E66.9 Obesity, unspecified (principal); Z68.35 Body mass index [BMI] 35.0-35.9, adult | CPT/HCPCS: 97803 ==

== ENCOUNTER → 2022-06-12 11:21 | Outpatient (BNVA) | payer OTHER, SELFPAY | PROVIDERS: PCP Family Medicine; Referring Provider Surgery; Visit Provider Dietitian, Registered | DX: E66.9 Obesity, unspecified (principal); Z68.34 Body mass index [BMI] 34.0-34.9, adult | CPT/HCPCS: 97803 ==

== ENCOUNTER → 2022-10-01 15:13 | Outpatient (BNVA) | payer OTHER, SELFPAY | PROVIDERS: PCP Family Medicine; Visit Provider Dietitian, Registered | DX: O99.211 Obesity complicating pregnancy, first trimester (principal); E66.9 Obesity, unspecified; Z3A.13 13 weeks gestation of pregnancy | CPT/HCPCS: 97803 ==

== ENCOUNTER → 2022-10-07 16:07 | Outpatient (BNVA) | payer OTHER, SELFPAY | PROVIDERS: PCP Family Medicine; Visit Provider Dietitian, Registered | DX: E66.01 Morbid (severe) obesity due to excess calories (principal) | CPT/HCPCS: 97803 ==

== ENCOUNTER → 2022-11-20 14:34 | Outpatient (BNVA) | payer OTHER, SELFPAY | PROVIDERS: PCP Family Medicine; Visit Provider Dietitian, Registered | DX: O99.212 Obesity complicating pregnancy, second trimester (principal); E66.9 Obesity, unspecified; Z3A.20 20 weeks gestation of pregnancy | CPT/HCPCS: 97803 ==

== ENCOUNTER 2022-12-10 09:21 | Outpatient (REF) | payer OTHER, SELFPAY ==
[2022-12-10 09:48] LABS: MANUAL DIFF FLAG NO
[2022-12-10 10:21] LABS: Basophils Percent Auto 0.1 % (0-2); Eosinophils Absolute Auto 0.1 X10*3/uL (0.0-0.4); Eosinophils Percent Auto 1.3 % (0-4); Hematocrit 34.3 % (37.0-47.0); Hemoglobin 10.9 g/dl (12.0-16.0); Imm Gran Abs Auto 0.02 X10*3/uL (0.00-0.03); Imm Gran Pct Auto 0.3 % (0.0-0.4); Lymphocytes Absolute Auto 1.7 X10*3/uL (1.2-4.9); Mean Corpuscular HGB Conc 31.8 g/dl (31.0-35.0); Mean Corpuscular Hemoglobin 26.4 pg (27.0-33.0); Mean Corpuscular Volume 83.1 fL (80.0-98.0); Mean Platelet Volume 10.1 fL (9.4-12.3); Monocytes Absolute Auto 0.5 X10*3/uL (0.1-1.2); Monocytes Percent Auto 6.9 % (2-11); Neutrophils Absolute Auto 4.4 x10*3/uL (2.0-8.3); Neutrophils Percent Auto 65.4 % (45-73); Platelet Count 288 X10*3/uL (160-400); Red Blood Count 4.13 X10*6/uL (4.20-5.50); Red Cell Distribution Width 14.3 % (11.0-16.0); White Blood Count 6.7 X10*3/uL (4.8-10.8)
[2022-12-10 10:58] LABS: Estimated Average Glucose 97 mg/dL
[2022-12-10 11:40] LABS: Alanine Aminotransferase 9 U/L (0-31); Albumin Level 3.6 g/dL (3.5-5.0); Alkaline Phosphatase 65 U/L (39-117); Anion Gap 11 (12-20); Aspartate Amino Transferase 14 U/L (5-31); Bilirubin Total 0.3 mg/dL (0.0-1.0); Blood Urea Nitrogen 7 mg/dL (9-16); C Reactive Protein 1.35 mg/dL (< or = 0.50); Calcium 9.1 mg/dL (8.4-10.2); Carbon Dioxide 25 mmol/L (22-29); Chloride 105 mmol/L (96-108); Cholesterol 213 mg/dL; Estimated Glomerular Filt Rate > 60; Glucose Random 72 mg/dL (60-115); HDL Cholesterol 65 mg/dL; Iron 45 mcg/dL (30-160); LDL Cholesterol Calculated 126 mg/dl; Percent Iron Saturation 9 % (15-50); Potassium 3.9 mmol/L (3.3-5.1); Sodium 137 mmol/L (135-145); Total Iron Binding Capacity 480 mcg/dL (228-428); Total Protein 6.8 g/dL (6.5-8.0); Triglycerides 114 mg/dL; Unsaturated Iron Binding 435 ug/dL
[2022-12-10 12:05] LABS: Folate 9.1 ng/mL (> or = 4.0); Vitamin B12 295 pg/mL (200-900)
[2022-12-10 12:11] LABS: Ferritin 8 ng/mL (10-122); Insulin 6 uU/mL (2-29); TSH reflex Free T4 2.22 uIU/mL (0.32-4.0); Vitamin D 25-OH Total 13.9 ng/mL (>30)
[2022-12-11 16:44] LABS: PTHI 38 pg/mL (16-77)
[2022-12-14 22:33] LABS: Zinc 53 mcg/dL (60-130)
== END 2022-12-10 09:22 | disposition home or self-care (01) ==
LOC: HO.LAB 09:21
PROVIDERS: PCP Family Medicine; Visit Provider Physician Assistant Surgical
DX: E66.01 Morbid (severe) obesity due to excess calories (principal); Z90.3 Acquired absence of stomach [part of]
CPT/HCPCS: 36415; 80053; 80061; 82306; 82607; 82728; 82746; 83036; 83525; 83540; 83970; 84425; 84443; 84590; 84630; 85025; 86140

== ENCOUNTER → 2023-01-06 13:23 | Outpatient (BNVA) | payer OTHER, SELFPAY | PROVIDERS: PCP Family Medicine; Visit Provider Dietitian, Registered | DX: E66.01 Morbid (severe) obesity due to excess calories (principal) | CPT/HCPCS: 97803 ==

== ENCOUNTER → 2023-01-07 13:48 | Outpatient (BNVA) | payer OTHER, SELFPAY | PROVIDERS: PCP Family Medicine; Visit Provider Dietitian, Registered | DX: O99.212 Obesity complicating pregnancy, second trimester (principal); E66.9 Obesity, unspecified; O09.892 Supervision of other high risk pregnancies, second trimester; Z3A.27 27 weeks gestation of pregnancy; Z90.49 Acquired absence of other specified parts of digestive tract; Z90.3 Acquired absence of stomach [part of]; Z71.3 Dietary counseling and surveillance | CPT/HCPCS: 97803 ==

== ENCOUNTER → 2023-02-03 10:38 | Outpatient (BNVA) | payer OTHER, SELFPAY | PROVIDERS: PCP Family Medicine; Visit Provider Dietitian, Registered | DX: O99.213 Obesity complicating pregnancy, third trimester (principal); Z3A.31 31 weeks gestation of pregnancy; Z71.3 Dietary counseling and surveillance | CPT/HCPCS: 97803 ==

== ENCOUNTER 2023-02-15 14:45 | Outpatient (REF) | payer OTHER, SELFPAY ==
[2023-02-15 17:21] LABS: Influenza A PCR NEGATIVE (Negative); Influenza B PCR NEGATIVE (Negative); Resp Syncy Virus RNA Qual PCR NEGATIVE (Negative); SARS COV2 PCR INHOUSE NEGATIVE (Negative)
== END 2023-02-15 14:46 | disposition home or self-care (01) ==
LOC: HO.LAB 14:45
PROVIDERS: Visit Provider Physician Assistant
DX: Z20.822 Contact with and (suspected) exposure to COVID-19 (principal); B34.9 Viral infection, unspecified
CPT/HCPCS: 0241U

== ENCOUNTER → 2023-08-19 15:11 | Outpatient (BNVA) | payer OTHER, SELFPAY | PROVIDERS: PCP Family Medicine; Visit Provider Dietitian, Registered | DX: E66.01 Morbid (severe) obesity due to excess calories (principal); Z90.49 Acquired absence of other specified parts of digestive tract; Z90.3 Acquired absence of stomach [part of]; Z71.3 Dietary counseling and surveillance | CPT/HCPCS: 97803 ==

== ENCOUNTER → 2023-09-01 13:23 | Outpatient (BNVA) | payer OTHER, SELFPAY | PROVIDERS: PCP Family Medicine; Visit Provider Dietitian, Registered | DX: E66.9 Obesity, unspecified (principal); Z98.84 Bariatric surgery status; Z71.3 Dietary counseling and surveillance | CPT/HCPCS: 97803 ==

== ENCOUNTER 2023-09-09 09:17 | Outpatient (REF) | payer OTHER, SELFPAY ==
[2023-09-09 09:40] LABS: MANUAL DIFF FLAG NO
[2023-09-09 10:02] LABS: Basophils Percent Auto 0.5 % (0-2); Eosinophils Absolute Auto 0.2 X10*3/uL (0.0-0.4); Eosinophils Percent Auto 3.5 % (0-4); Hematocrit 35.3 % (37.0-47.0); Hemoglobin 10.2 g/dl (12.0-16.0); Imm Gran Abs Auto 0.02 X10*3/uL (0.00-0.03); Imm Gran Pct Auto 0.5 % (0.0-0.4); Lymphocytes Absolute Auto 1.8 X10*3/uL (1.2-4.9); Lymphocytes Percent Auto 42.6 % (20-40); Mean Corpuscular HGB Conc 28.9 g/dl (31.0-35.0); Mean Corpuscular Hemoglobin 21.2 pg (27.0-33.0); Mean Corpuscular Volume 73.2 fL (80.0-98.0); Mean Platelet Volume 10.3 fL (9.4-12.3); Monocytes Absolute Auto 0.3 X10*3/uL (0.1-1.2); Monocytes Percent Auto 7.1 % (2-11); Neutrophils Percent Auto 45.8 % (45-73); Platelet Count 377 X10*3/uL (160-400); Red Blood Count 4.82 X10*6/uL (4.20-5.50); Red Cell Distribution Width 18.2 % (11.0-16.0); White Blood Count 4.3 X10*3/uL (4.8-10.8)
[2023-09-09 10:53] LABS: Alanine Aminotransferase 14 U/L (0-31); Albumin Level 4.4 g/dL (3.5-5.0); Alkaline Phosphatase 76 U/L (39-117); Anion Gap 15 (12-20); Aspartate Amino Transferase 21 U/L (5-31); Bilirubin Total 0.4 mg/dL (0.0-1.0); Blood Urea Nitrogen 8 mg/dL (9-16); C Reactive Protein 0.44 mg/dL (< or = 0.50); Calcium 9.6 mg/dL (8.4-10.2); Carbon Dioxide 23 mmol/L (22-29); Chloride 106 mmol/L (96-108); Cholesterol 180 mg/dL (<200); Estimated Glomerular Filt Rate > 60; Glucose Random 82 mg/dL (60-115); HDL Cholesterol 62 mg/dL (>40); Iron 25 mcg/dL (30-160); LDL Cholesterol Calculated 105 mg/dL (<100); Percent Iron Saturation 6 % (15-50); Sodium 140 mmol/L (135-145); Total Iron Binding Capacity 408 mcg/dL (228-428); Total Protein 7.8 g/dL (6.5-8.0); Triglycerides 67 mg/dL (<150); Unsaturated Iron Binding 383 ug/dL
[2023-09-09 11:15] LABS: Ferritin 6 ng/mL (10-122); Insulin 9 uU/mL (2-29); Vitamin D 25-OH Total 20.7 ng/mL (>30)
[2023-09-09 12:01] LABS: Estimated Average Glucose 105 mg/dL; Hemoglobin A1c % 5.3 % (<6.0)
[2023-09-09 12:09] LABS: Folate 10.8 ng/mL (> or = 4.0); Vitamin B12 406 pg/mL (200-900)
[2023-09-13 15:08] LABS: Zinc 69 mcg/dL (60-130)
[2023-09-14 15:48] LABS: Calcium (PTHI) 9.2 mg/dL (8.6-10.2); PTHI 58 pg/mL (16-77)
[2023-09-15 00:49] LABS: Vitamin A 36 mcg/dL (38-98)
[2023-09-15 15:19] LABS: Vitamin B1 14 nmol/L (8-30)
== END 2023-09-09 09:18 | disposition home or self-care (01) ==
LOC: HO.LAB 09:17
PROVIDERS: Visit Provider Physician Assistant
DX: O99.210 Obesity complicating pregnancy, unspecified trimester (principal); E66.9 Obesity, unspecified; O26.899 Other specified pregnancy related conditions, unspecified trimester; E61.1 Iron deficiency; Z90.3 Acquired absence of stomach [part of]
CPT/HCPCS: 36415; 80053; 80061; 82306; 82607; 82728; 82746; 83036; 83525; 83540; 83970; 84425; 84443; 84590; 84630; 85025; 86140

== ENCOUNTER → 2023-09-17 10:37 | Outpatient (BNVA) | payer OTHER, SELFPAY | PROVIDERS: PCP Family Medicine; Visit Provider Dietitian, Registered | DX: K76.0 Fatty (change of) liver, not elsewhere classified (principal); K21.9 Gastro-esophageal reflux disease without esophagitis; E66.01 Morbid (severe) obesity due to excess calories; Z68.39 Body mass index [BMI] 39.0-39.9, adult | CPT/HCPCS: 97803 ==

== ENCOUNTER 2023-11-17 09:05 | Outpatient (AMB) | payer OTHER, SELFPAY ==
--- NOTE | 2023-11-17 08:30 | A.OFFVIS_ITS ---
Intake VS Expanded 11/17/23 08:44 Height 5 ft 3 in Weight 225 lb BMI 39.9 Intake Visit Reasons: (TV) PO LSG 03/03/22 Allergies Penicillins [PENICILLINS] Allergy (Intermediate, Verified 02/15/23 13:51) HIVES ondansetron [From ZOFRAN] Allergy (Mild, Verified 02/15/23 13:51) HIVES penicillin V Allergy (Unknown, Verified 02/15/23 13:51) hives Medication List - Last Reconciled 11/17/23 by JONH Gonzales-Luis Miguel iron,carbonyl-vitamin C 65 mg iron- 125 mg (Vitron-C) 1 tab PO BEDTIME [id number]-FA-vit K 45 mg iron- 800 mcg-120 mcg (Bariatric Multivitamins) caps PO HPI HPI Comments History of Present Illness Details Pt is now 18 months s/p LSG. [employer] weight of 229 lbs lowest weight 206 lbs. Had full term March 2023, present contraceptive method is nothing - she is Ok if she gets . Blood work August 2023 revealed anemia, vitamin D deficiency Patient states she gets full quickly, but feels hungry often. She is no longer . No nausea, emesis or reflux. Sleeps 4-5 hours per night Meal plan 9am - coffee with almond milk and splend a 11- 12pm - 1 piece of toast with 1 egg, ketchup 3-4 pm - granola bar or left over chicke n 6-7 pm - small spoon rice, 2 chicken win gs (4 oz), vegetables 5d/ week, has 1 oz diet Coke after dinner at 8-9 pm. craves it. Exercise - none PFSH Medical History (Updated 10/14/22 @ 14:25 by JONH Evangelista) Steatosis, liver Low back pain GERD (gastroesophageal reflux disease) Morbid obesity Back pain Hip pain Surgical History (Updated 03/10/22 @ 14:21 by Latrice Christine LPN) Status post sleeve gastrectomy History of cholecystectomy History of wisdom tooth extraction Family History (Updated 11/19/21 @ 08:22 by Massimo Whitaker Letitia) Brother Mental health disorder Mother No problems noted. Father No problems noted. Brother Hypertension Son No problems noted. Daughter No problems noted. 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 7am - coffee 9 am - Orgain shake UAM 1pm - 3 oz protein and 2 oz vegetable 3-4 pm - Orgain bar 7pm - 4 oz protien and 2 oz vegetable Exercise - has a treadmill at home now. 2,000 wilfred per week - Will follow up with Teresita in 3 months and send her weekly weights. Continue bariatric vitamin, and iron supplements, I sent prescription for Vit D. We discussed using a contraceptive method now, she needs to lose about 100 lbs. We discussed that she is nota revision candidate and that the reason she is hunger is because she does not eat properly or enough. We counted grams of protein. Patient is still obese and is not considered stable at this time. I spent 30minutes in total speaking with the patient via video conference counseling , reviewing records and charting in patients chart. . (2) Status post sleeve gastrectomy: Comment: 03/03/22 Code(s): Z90.3 - Acquired absence of stomach [part of] (3) Anemia: Code(s): D64.9 - Anemia, unspecified Plan see above Medications: New cholecalciferol (vitamin D3) 50 mcg PO DAILY 90 caps 3RF Telehealth Telehealth Location of provider rendering services: practice address Location of patient: address on file Patient Identification confirmed using: Name, : Yes Telehealth method: video Patient verbally consented to treatment: Yes Patient verbally consented to billing insurance company: Yes Patient informed of any privacy concerns related to visit: Yes Coding Level of Care Code Tele Est Pt Level 4 (02685) Diagnoses Obesity E66.9 Status post sleeve gastrectomy Z90.3 Anemia D64.9
[2023-11-17 08:44] VITALS: BMI 39.9
== END 2023-11-17 09:25 | disposition home or self-care (01) ==
LOC: HO.HBS 09:05
PROVIDERS: PCP Family Medicine; Visit Provider Physician Assistant
DX: E66.9 Obesity, unspecified (principal); Z90.3 Acquired absence of stomach [part of]; D64.9 Anemia, unspecified
CPT/HCPCS: 99214

== ENCOUNTER → 2023-11-17 09:05 | Outpatient (BNVA) | payer OTHER, SELFPAY | PROVIDERS: PCP Family Medicine; Visit Provider Physician Assistant ==

== ENCOUNTER 2024-01-12 11:33 | Outpatient (AMB) | payer OTHER, SELFPAY ==
--- NOTE | 2024-01-12 10:59 | MHC.AMNUTRGE ---
Intake VS Expanded 01/12/24 11:27 Height 5 ft 3 in Weight 230 lb BMI 40.7 Intake Visit Reasons: (TV) PO LSG 03/03/22 Allergies Penicillins [PENICILLINS] Allergy (Intermediate, Verified 02/15/23 13:51) HIVES ondansetron [From ZOFRAN] Allergy (Mild, Verified 02/15/23 13:51) HIVES penicillin V Allergy (Unknown, Verified 02/15/23 13:51) hives HPI Nutrition Presentation Details LSG Dr Gonzalez DOS 03/03/22 Preop weight 02/27/22 229# weight at 2MO PO 203# Weight at 3 MO PO 195# Prepregnancy weight 206# Time of childbirth roughly 220# Weight Dec 2022 216# current weight 230# Reason for consult elevated BMI Diet Assmnt Details sleeping 5 hours , broken sleep because waking up in the middle of the night to care for infant I'm really struggling staying fulll - see previous RD notes Typical intake includes 8am coffee with fairlife protein shake 11am-12pm /2 gregorio bagel with 1 egg 2pm coffee with Fairlife shake 3-4pm leftovers from dinner- meat or half bagel 5-6pm dinner i have an issue with rice 1cup rice with meat pork chop or wings or boneless pork chop goes back to dinner meal if she hasn't finished 12am coffee or energy drink Exercise: walking 30 minutes and 4 days per week Pt shares she wants another child. Dietary counseling reduction Diagnosis Nutrition problem #1 overweight/obesity As related to (etiology) #1 excess energy intake and physical inactivity As evidenced by (sign/symptom) #1 high BMI Monitoring/Goals Nutrition problem monitoring total energy intake, level of knowledge/skill, total PRO intake, total CHO intake, weight and oral fluids Outcome progress verbalized understanding Learning/Education Readiness to learn good Stages of change action Educational materials provided Yes (list of vegetables) Most Recent Diabetes Results: Cholesterol 180 mg/dL (<200) 09/09/23 HDL Cholesterol 62 mg/dL (>40) 09/09/23 Triglycerides 67 mg/dL (<150) 09/09/23 Creatinine 0.74 mg/dL (0.5-1.4) 09/09/23 Blood Urea Nitrogen 8 mg/dL (9-16) L 09/09/23 Sodium 140 mmol/L (135-145) 09/09/23 Potassium 4.0 mmol/L (3.3-5.1) 09/09/23 Chloride 106 mmol/L (96-108) 09/09/23 Carbon Dioxide 23 mmol/L (22-29) 09/09/23 Calcium 9.6 mg/dL (8.4-10.2) 09/09/23 AST 21 U/L (5-31) 09/09/23 ALT 14 U/L (0-31) 09/09/23 Total Protein 7.8 g/dL (6.5-8.0) 09/09/23 Albumin 4.4 g/dL (3.5-5.0) 09/09/23 [facility] Medical History (Updated 10/14/22 @ 14:25 by JONH Evangelista) Steatosis, liver Low back pain GERD (gastroesophageal reflux disease) Morbid obesity Back pain Hip pain Surgical History (Updated 03/10/22 @ 14:21 by Latrice Christine LPN) Status post sleeve gastrectomy History of cholecystectomy History of wisdom tooth extraction Family History (Updated 11/19/21 @ 08:22 by Massimo Whitaker Letitia) Brother Mental health disorder Mother No problems noted. Father No problems noted. Brother Hypertension Son No problems noted. Daughter No problems noted. 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 a significant other at home: Yes (8 month old baby) Do you presently have visiting nurse or other home services: No Alcohol intake: current Alcohol intake frequency: does not drink Comment: aware of trip hazard Patient Tobacco Use Status: Never used Tobacco e-Cigarette/Vaping Use: Never Used Second Hand Smoke Exposure: No service: No Current occupational status: employed Gender identity: Female Cognitive needs: No Hearing needs: No Vision needs: Yes (Glasses) Assessment & Plan Assessment & Plan (1) Obesity, morbid, BMI 40.0-49.9: Code(s): E66.01 - Morbid (severe) obesity due to excess calories Plan isn't sleeping well, getting 5 hours and its broken sleep. Also isn't getting any dietary fiber, recommended adding vegetables to at least 2 meals. She wants to discuss AOM with Lilian BORJA. Was supposed to have an appt tomorrow for this purpose but it was rescheduled - pt would like to r/s it. Telehealth Telehealth Location of provider rendering services: practice address Location of patient: address on file Patient Identification confirmed using: Name, : Yes Telehealth method: video Patient verbally consented to treatment: Yes Patient verbally consented to billing insurance company: Yes Patient informed of any privacy concerns related to visit: Yes Minutes spent on Phone/Video with Pt.: 30 Coding Level of Care Code Nutr Indiv Subseq ([id number]) Diagnoses Obesity, morbid, BMI 40.0-49.9 E66.01 Time Spent (min) 30
[2024-01-12 11:27] VITALS: BMI 40.7
== END 2024-01-12 13:05 | disposition home or self-care (01) ==
LOC: HO.HBS 11:33
PROVIDERS: PCP Family Medicine; Visit Provider Dietitian, Registered
DX: E66.01 Morbid (severe) obesity due to excess calories (principal)

== ENCOUNTER → 2024-01-12 11:33 | Outpatient (BNVA) | payer OTHER, SELFPAY | PROVIDERS: PCP Family Medicine; Visit Provider Dietitian, Registered | DX: E66.01 Morbid (severe) obesity due to excess calories (principal); Z68.41 Body mass index [BMI] 40.0-44.9, adult | CPT/HCPCS: 97803 ==

== ENCOUNTER 2024-01-24 11:30 | Outpatient (AMB) | payer OTHER, SELFPAY ==
--- NOTE | 2024-01-24 11:39 | MHC.OFFVISWM ---
Intake VS Expanded 01/24/24 11:53 Height 5 ft 3 in Weight 228 lb BMI 40.4 Intake Visit Reasons: VIDEO PO LSG 03/03/22 Allergies Penicillins [PENICILLINS] Allergy (Intermediate, Verified 02/15/23 13:51) HIVES ondansetron [From ZOFRAN] Allergy (Mild, Verified 02/15/23 13:51) HIVES penicillin V Allergy (Unknown, Verified 02/15/23 13:51) hives Medication List - Last Reconciled 01/24/24 by JONH Gonzales-C cholecalciferol (vitamin D3) 50 mcg PO DAILY iron,carbonyl-vitamin C 65 mg iron- 125 mg (Vitron-C) 1 tab PO BEDTIME luwolqezkivo-mwu-qpkx-FA-vit K 45 mg iron- 800 mcg-120 mcg (Bariatric Multivitamins) caps PO HPI HPI Comments History of Present Illness Details 28 yo woman now almost 2 years s/p LSG had FT March 2023. Still struggling with hunger, feels restriction from LSG. 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 Bed at 10 - 11 pm, wakes at 6 am. Up 2 -3 times during the night for childcare. 8am - 12 oz coffee with Fairlife shake - over 1- 2 hour 11 - 12 pm - half Shashank's killer bread bagel with 1 egg 2pm- diet Coke or coffee with half Fairlife shake 3-4 pm - 3 chicken wings or 1 pork chop OR half bagel with 1 egg 5-6 pm - 1 cup rice and 1 pork chop or wings or breast, 3/4 cup of broccoli or green beans - may not finish this - feels full 8-9 pm -finishes her meal or have more of the same food. May have coffee with oatmilk creamer again 11 pm- 12 am. Not so much anymore . Never eats during the middle of the night. Treadmill 4 d/week - no incline, speed 4 - boateng <300 calories over about 30 minutes. [facility] Medical History (Updated 10/14/22 @ 14:25 by JONH Evangelista) Steatosis, liver Low back pain GERD (gastroesophageal reflux disease) Morbid obesity Back pain Hip pain Surgical History (Updated 03/10/22 @ 14:21 by Latrice Christine LPN) Status post sleeve gastrectomy History of cholecystectomy History of wisdom tooth extraction Family History (Updated 11/19/21 @ 08:22 by Massimo Whitaker Letitia) Brother Mental health disorder Mother No problems noted. Father No problems noted. Brother Hypertension Son No problems noted. Daughter No problems noted. 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 rn coronary care unit to a significant other at home: Yes (8 month old baby) Do you presently have visiting nurse or other home services: No Alcohol intake: current Alcohol intake frequency: does not drink Comment: aware of trip hazard Patient Tobacco Use Status: Never used Tobacco e-Cigarette/Vaping Use: Never Used Second Hand Smoke Exposure: No service: No Current occupational status: employed Gender identity: Female Cognitive needs: No Hearing needs: No Vision needs: Yes (Glasses) Assessment & Plan Assessment & Plan (1) Status post sleeve gastrectomy: Comment: 03/03/22 Code(s): Z90.3 - Acquired absence of stomach [part of] Plan: 2 years post op with weight gain, poor diet and inadequate exercise. No caffein after 2pm Meal plan - 100 grams per day 8 am --Coffee with UAM 10a - Fairlife shake 1pm - half Nilsa bagel with 2 eggs 4pm - shake 7pm - dinner - 4oz =8 forks of lean protien and 3 oz - 6 forks of rice/cauliflower rice mix a, 2 oz vegetable added fiber tablets bid, >3 bottles of water per day. Pt wants appetite suppressant - told her we would start with Exercise - 2,000 wilfred /week - treadmill 300 wilfred/7 days or equivalent. Will text me this month and then appts with Rosalia 6-8 weeks for follow up. Post op l abs done Aug 2023, will repeat CBC only now for anemia check. (2) Morbid obesity: Code(s): E66.01 - Morbid (severe) obesity due to excess calories Plan see above Orders: Orders Complete Blood Count Auto Diff Today Z90.3 - Acquired absence of stomach [part of] Medications: New inulin (Fiber Gummies) 2 grams PO BID 180 tabs 3RF Telehealth Telehealth Location of provider rendering services: practice address Location of patient: address on file Patient Identification confirmed using: Name, : Yes Telehealth method: video Patient verbally consented to treatment: Yes Patient verbally consented to billing insurance company: Yes Patient informed of any privacy concerns related to visit: Yes Coding Level of Care Code Tele Est Pt Level 4 (93835) Diagnoses Status post sleeve gastrectomy Z90.3 Morbid obesity E66.01
[2024-01-24 11:53] VITALS: BMI 40.4
== END 2024-01-24 12:14 | disposition home or self-care (01) ==
LOC: HO.HBS 12:00
PROVIDERS: PCP Family Medicine; Visit Provider Physician Assistant
DX: E66.01 Morbid (severe) obesity due to excess calories (principal); Z68.41 Body mass index [BMI] 40.0-44.9, adult; Z90.3 Acquired absence of stomach [part of]; Z98.84 Bariatric surgery status
CPT/HCPCS: 99214

== ENCOUNTER → 2024-01-24 11:30 | Outpatient (BNVA) | payer OTHER, SELFPAY | PROVIDERS: PCP Family Medicine; Visit Provider Physician Assistant ==

== ENCOUNTER 2024-02-09 13:18 | Outpatient (AMB) | payer OTHER, SELFPAY ==
--- NOTE | 2024-02-09 11:34 | MHC.OFFVISWM ---
Intake VS Expanded 02/09/24 11:48 Height 5 ft 3 in Weight 227 lb BMI 40.2 Intake Visit Reasons: VIDEO PO LSG 03/03/22 Allergies Penicillins [PENICILLINS] Allergy (Intermediate, Verified 02/15/23 13:51) HIVES ondansetron [From ZOFRAN] Allergy (Mild, Verified 02/15/23 13:51) HIVES penicillin V Allergy (Unknown, Verified 02/15/23 13:51) hives Medication List - Last Reconciled 02/09/24 by JONH Evangelista cholecalciferol (vitamin D3) 50 mcg PO DAILY inulin (Fiber Gummies) 2 grams PO BID iron,carbonyl-vitamin C 65 mg iron- 125 mg (Vitron-C) 1 tab PO BEDTIME lwjlqjdtzmjn-epy-zpta-FA-vit K 45 mg iron- 800 mcg-120 mcg (Bariatric Multivitamins) caps PO HPI HPI Comments History of Present Illness Details This?is a?28 yo female who is s/p LSG 03/03/2022. Presents for 2 year post op visit. Weight at last visit on 01/24/2024 was 228 pounds with a BMI of 40.4, weight today is 227 pounds, representing a 1 pound weight loss with a BMI today of 40.2.? Pt reports I've been struggling but I feel somewhat better eating sheets, I feel like it's improved. Sleeping is better. Pt reports difficulty following plan 100%. Finances limit her ability to get protein products. coffee first sandwich in AM with turkey richards, eggs, lettuce, tomato lunch- leftover chili dinner- chicken drumstick, 2 plantains sometimes feels hungry at night Present meal plan includes: No caffeine after 2pm Meal plan - 100 grams per day 8 am - Coffee with UAM 10am - Fairlife shake 1pm - half Shashank's bagel with 2 eggs 4pm - shake 7pm - dinner - 4oz (8 forks) lean protein and 3 oz (6 forks) rice/cauliflower rice mix, 2 oz vegetable added fiber tablets bid, >3 bottles of water per day Exercise - 2,000 wilfred /week - treadmill 300 wilfred/7 days or equivalent. Pt reports not much exercise. [facility] Medical History (Updated 10/14/22 @ 14:25 by JONH Evangelista) Steatosis, liver Low back pain GERD (gastroesophageal reflux disease) Morbid obesity Back pain Hip pain Surgical History (Updated 03/10/22 @ 14:21 by Latrice Christine LPN) Status post sleeve gastrectomy History of cholecystectomy History of wisdom tooth extraction Family History (Updated 11/19/21 @ 08:22 by Massimo Whitaker [facility]) Brother Mental health disorder Mother No problems noted. Father No problems noted. Brother Hypertension Son No problems noted. Daughter No problems noted. Social History (Updated 11/19/21 @ 08:23 by Massimo Whitaker, [facility]) Household Members: Significant Other and Family Housing: Apartment Are you a primary transitional care nurse to a significant other at home: Yes (8 month old baby) Do you presently have visiting nurse or other home services: No Alcohol intake: current Alcohol intake frequency: does not drink Comment: aware of trip hazard Patient Tobacco Use Status: Never used Tobacco e-Cigarette/Vaping Use: Never Used Second Hand Smoke Exposure: No service: No Current occupational status: employed Gender identity: Female Cognitive needs: No Hearing needs: No Vision needs: Yes (Glasses) Assessment & Plan Assessment & Plan (1) Status post sleeve gastrectomy: Comment: 03/03/22 Code(s): Z90.3 - Acquired absence of stomach [part of] (2) Obesity, morbid, BMI 40.0-49.9: Code(s): E66.01 - Morbid (severe) obesity due to excess calories Plan Pt again brought up appetite suppressant but I noted to her that she mentioned last night for dinner she was not very hungry. We discussed that she still seemed low in overall protein intake and increasing her protein while eliminating other off plan foods will likely help feelings of hunger. Even adding one protein shake per day will help get her protein intake closer to goal (she likes [employer]). We reviewed previously provided meal plan at last visit. Encouraged exercise, even starting with 15-20min several days a week to get back into routine with ultimate goal of 2000cal/week burned. Pt did not have repeat CBC drawn yet, plans to go soon. RTC 3-4 months. Texted pt my # and encouraged her to reach out between appts with any questions. Patient is morbidly obese and is not considered stable at this time. I spent a total of 30 minutes reviewing/updating records, examining the patient and counseling the patient on weight management as detailed above. Telehealth Telehealth Location of provider rendering services: practice address Location of patient: address on file Patient Identification confirmed using: Name, : Yes Telehealth method: voice only Patient verbally consented to treatment: Yes Patient verbally consented to billing insurance company: Yes Patient informed of any privacy concerns related to visit: Yes Minutes spent on Phone/Video with Pt.: 15 Coding Level of Care Code Tele Est Pt Level 4 (26979) Diagnoses Status post sleeve gastrectomy Z90.3 Obesity, morbid, BMI 40.0-49.9 E66.01
[2024-02-09 11:48] VITALS: BMI 40.2
== END 2024-02-09 13:19 | disposition home or self-care (01) ==
LOC: HO.HBS 13:18
PROVIDERS: PCP Family Medicine; Visit Provider Physician Assistant Surgical
DX: E66.01 Morbid (severe) obesity due to excess calories (principal); Z68.41 Body mass index [BMI] 40.0-44.9, adult; Z90.3 Acquired absence of stomach [part of]; Z98.84 Bariatric surgery status
CPT/HCPCS: 99214

== ENCOUNTER → 2024-02-09 13:18 | Outpatient (BNVA) | payer OTHER, SELFPAY | PROVIDERS: PCP Family Medicine; Visit Provider Physician Assistant Surgical | DX: Z90.3 Acquired absence of stomach [part of] (principal); E66.01 Morbid (severe) obesity due to excess calories ==

== ENCOUNTER 2024-02-11 14:12 | Outpatient (AMB) | payer OTHER, SELFPAY ==
--- NOTE | 2024-02-11 14:06 | A.OFFPC_ITS ---
Intake Visit Reasons: anxiety, dry scalp/[phone] Intake Note: Pt presents to the office today as a telehealth visit. Pt states she has been having issues with anxiety for years and since having her 3 children she has noticed that her anxiety has increased. Pt states she is looking to get on anxiety medications. She also states she has been having issues with a dry/patchy/painful scalp for her whole life but since having her weight loss surgery 2 years ago it got worse. Allergies Penicillins [PENICILLINS] Allergy (Intermediate, Verified 02/11/24 14:07) HIVES ondansetron [From ZOFRAN] Allergy (Mild, Verified 02/11/24 14:07) HIVES penicillin V Allergy (Unknown, Verified 02/11/24 14:07) hives Tobacco use date assessed: 02/11/24 Dental Screening Dental Screen Date: 02/11/24 Did you have a dental visit in the last 12 months?: No Did you have a dental problem in the last 6 months where you did not have access to dental care?: No Was dental information given to patient?: Patient has dentist HPI anxiety, dry scalp/[phone] HPI Details 28 y/o female presents today via telemed icine to discuss her anxiety. She reports that since having her 3 children anxiety has increased. She also reports a dry, itchy scalp that had gotten worse since her gastric sleeve about 2 years ago. She notes she has trialed anxiety meds before for specific scenarios such as getting on an airplane. She reports she does have anxiety all the time. HPI Comments History of Present Illness Details Documentation assistance for Mil Babin MD, was provided by Manan Roldan, Cell Stripper Final on 02/11/2024 2:29 PM EST. I, Dr. Babin, have read, observed, and verified documentation. [facility] Medical History Steatosis, liver Low back pain GERD (gastroesophageal reflux disease) Morbid obesity Back pain Hip pain Surgical History Status post sleeve gastrectomy History of cholecystectomy History of wisdom tooth extraction Family History Brother Mental health disorder Mother No problems noted. Father No problems noted. Brother Hypertension Son No problems noted. Daughter No problems noted. Social History Household Members: Significant Other and Family Housing: Apartment Are you a primary continuum of care manager to a significant other at home: Yes (8 month old baby) Do you presently have visiting nurse or other home services: No Alcohol intake: current Alcohol intake frequency: does not drink Comment: aware of trip hazard Patient Tobacco Use Status: Never used Tobacco e-Cigarette/Vaping Use: Never Used Second Hand Smoke Exposure: No service: No Current occupational status: employed Gender identity: Female Cognitive needs: No Hearing needs: No Vision needs: Yes (Glasses) Questionnaire PHQ-9 Over the last 2 weeks, how often have you been bothered by any of the following problems? 1. Little interest or pleasure in doing things: not at all 2. Feeling down, depressed, or hopeless: not at all 3. Trouble falling or staying asleep, or sleeping too much: not at all 4. Feeling tired or having little energy: not at all 5. Poor appetite or overeating: not at all 6. Feeling bad about yourself - or that you are a failure or have let yourself or your family down: not at all 7. Trouble concentrating on things, such as reading the newspaper or watching television: not at all 8. Moving or speaking so slowly that other people could have noticed. Or the opposite - being so fidgety or restless that you have been moving around a lot more than usual: not at all 9. Thoughts that you would be better off or of hurting yourself in some way: not at all Total score: 0 Depression Screening Interpretation: Negative Depression Screening Done: Yes 85845 - PHQ-9 Billing: Yes Source: Developed by Drs. Domingo Muro, Rhonda Cat, Adalberto Meyer and colleagues, with an educational olga from [employer]. Thrive Questionnaire Date Thrive assessed: 02/11/24 I am a: Patient What is your living situation today?: I have a steady place to live Within the past 12 months, did the food you bought not last and you didn't have the money to get more?: Never true Within the past 12 months, did you worry whether your food would run out before you got money to buy more?: Never true Do you have trouble paying for medicines?: No Do you have trouble getting transportation to medical appointments?: No Do you have trouble paying your heating and electricity bill?: No Do you have trouble taking care of your child, family member or friend?: No Do you have trouble with day-to-day activities such as bathing, preparing meals, shopping, managing finances, etc.?: No Are you currently unemployed and looking for a job?: No Are you interested in more education?: No THRIVE Score: 0 AUDIT C Alcohol Use Questionnaire (AUDIT-C) 1. How often do you have a drink containing alcohol?: 2-4 times a month 2. How many drinks containing alcohol do you have on a typical day when you are drinking?: 1 or 2 3. How often do you have six or more drinks on one occasion?: Never Total Score: 2 MAGDALENO-7 AMB Questionnaire MAGDALENO-7 Date MAGDALENO - 7 assessed: 02/11/24 Feeling nervous, anxious, or on edge: 2 = More than half the days Not being able to stop or control worryin = Nearly every day Worrying too much about different things: 3 = Nearly every day Trouble relaxin = Nearly every day Being so restless that it is hard to sit still: 0 = Not at all Becoming easily annoyed or irritable: 2 = More than half the days Feeling afraid as if something awful might happen: 2 = More than half the days Total MAGDALENO-7 score (0-4 normal; 5-9 mild; 10-14 moderate; 15-21 severe): 15 Source: Developed by Drs. Domingo Muro, Rhonda Cat, Adalberto Meyer and colleagues, with an educational olga from [employer]. MAGDALENO-7 Assessment Billing MAGDALENO-7 Assessment Tool: MAGDALENO-7 Assessment 59075 Review of Systems Const Denies chills, Denies fatigue, Denies fever(s), Denies headache(s) and Denies weakness ENT Denies dizziness and Denies headache(s) Card Denies dyspnea Resp Denies cough, Denies dyspnea, Denies wheezing and Denies other (shortness of breath) Musc Denies numbness and Denies tingling Neuro Denies dizziness, Denies headache(s), Denies numbness, Denies tingling and Den ies weakness Psych Denies anxiety and Denies depression Endo Denies fatigue Aller/Immun Denies wheezing Physical exam (Primary Care) Tobacco/Smoking Status: Tobacco use Status Tobacco use date assessed 02/11/24 02/11/24 14:11 Patient Tobacco Use Status Never used Tobacco 02/11/24 14:11 e-Cigarette/Vaping Use Never Used 02/11/24 14:11 PHQ-9: PHQ-9 Score PHQ-9: Total score 0 02/11/24 14:25 Depression Screening Interpretation: Negative Thrive Assessment: Date of Thrive Assessment Date Thrive assessed 02/11/24 02/11/24 14:11 Telehealth Telehealth Minutes spent on Phone/Video with Pt.: 8 Assessment and Plan Assessment & Plan (1) Anxiety: Code(s): F41.9 - Anxiety disorder, unspecified Plan: Significant?anxiety?which?is?affecting?her?ability?to?get?out?of?the?house?such? as?for?vacations.??Worrying?a?lot. We?discussed?1st?and?2nd?line?medications. Will?start?citalopram Also?will?ask?the?nurse?navigator?to?refer?her?to?a?therapist?as?I?think?she?wou ld?benefit?from?cognitive?behavioral?therapy?to?t reat?her?anxious?thought?patterns. (2) Dry scalp: Code(s): R23.8 - Other skin changes Plan: Dry?scalp?but?she?also?notes?that?it?is?flaky?and?painful. Unclear?overall?cause Will?need?to?examine?her She?will?hydrate?well Will?follow-up?at?next?visit. Orders: Referrals Nurse Navigator Referral F41.9 - Anxiety disorder, unspecified Medications: New multivitamin with minerals (Hair,Skin and Nails tablet) 1 tab PO DAILY 90 tabs 2RF 90 days citalopram 20 mg PO DAILY 30 tabs 2RF 30 days Coding Level of Care Code Tele Est Pt Level 2 (77655) Diagnoses Anxiety F41.9 Dry scalp R23.8 Additional Codes MAGDALENO-7 Assessment Billing - MAGDALENO-7 Assessment Tool: MAGDALENO-7 Assessment 23720 ([id number])
== END 2024-02-11 15:16 | disposition home or self-care (01) ==
LOC: HO.HMGFM 14:12
PROVIDERS: PCP Family Medicine; Visit Provider Family Medicine
DX: F41.9 Anxiety disorder, unspecified (principal); R23.8 Other skin changes
CPT/HCPCS: 99212

== ENCOUNTER 2024-02-23 13:27 | Outpatient (AMB) | payer OTHER, SELFPAY ==
--- NOTE | 2024-02-23 13:01 | A.OFFVIS_ITS ---
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 Allergies Penicillins [PENICILLINS] Allergy (Intermediate, Verified 02/11/24 14:07) HIVES ondansetron [From ZOFRAN] Allergy (Mild, Verified 02/11/24 14:07) HIVES penicillin V Allergy (Unknown, Verified 02/11/24 14:07) hives HPI Nutrition Presentation Details [facility] [place] DOS 03/03/22 Preop weight 02/27/22 229# weight at 2MO PO 203# Weight at 3 MO PO 195# Prepregnancy weight 206# Time of childbirth roughly 220# Weight Dec 2022 216# last weight Dec 2023 230# current weight 220# Reason for consult elevated BMI Diet Assmnt Details Started anxiety medications and reports she notices less hunger and can control her intake better. she reports also starting fiber supplement and notices a big improvement in her appetite as well 2 eggs w meat such as lean sausage afternoon fairlife shake dinner : stopped eating rice, meat and salad Exercise: nothing now, has been caring for the household as everyone has been sick Pt shares she wants another child Dietary counseling reduction Diagnosis Nutrition problem #1 overweight/obesity As related to (etiology) #1 excess energy intake and physical inactivity As evidenced by (sign/symptom) #1 high BMI Monitoring/Goals Nutrition problem monitoring total energy intake, level of knowledge/skill, total PRO intake, total CHO intake, weight and oral fluids Outcome progress progressing Learning/Education Readiness to learn good Stages of change action Most Recent Diabetes Results: Cholesterol 180 mg/dL (<200) 09/09/23 HDL Cholesterol 62 mg/dL (>40) 09/09/23 Triglycerides 67 mg/dL (<150) 09/09/23 Creatinine 0.74 mg/dL (0.5-1.4) 09/09/23 Blood Urea Nitrogen 8 mg/dL (9-16) L 09/09/23 Sodium 140 mmol/L (135-145) 09/09/23 Potassium 4.0 mmol/L (3.3-5.1) 09/09/23 Chloride 106 mmol/L (96-108) 09/09/23 Carbon Dioxide 23 mmol/L (22-29) 09/09/23 Calcium 9.6 mg/dL (8.4-10.2) 09/09/23 AST 21 U/L (5-31) 09/09/23 ALT 14 U/L (0-31) 09/09/23 Total Protein 7.8 g/dL (6.5-8.0) 09/09/23 Albumin 4.4 g/dL (3.5-5.0) 09/09/23 [facility] Medical History Steatosis, liver Low back pain GERD (gastroesophageal reflux disease) Morbid obesity Back pain Hip pain Surgical History Status post sleeve gastrectomy History of cholecystectomy History of wisdom tooth extraction Family History Brother Mental health disorder Mother No problems noted. Father No problems noted. Brother Hypertension Son No problems noted. Daughter No problems noted. Social History Household Members: Significant Other and Family Housing: Apartment Are you a primary emergency care tech to a significant other at home: Yes (8 month old baby) Do you presently have visiting nurse or other home services: No Alcohol intake: current Alcohol intake frequency: does not drink Comment: aware of trip hazard Patient Tobacco Use Status: Never used Tobacco e-Cigarette/Vaping Use: Never Used Second Hand Smoke Exposure: No service: No Current occupational status: employed Gender identity: Female Cognitive needs: No Hearing needs: No Vision needs: Yes (Glasses) Assessment & Plan Assessment & Plan (1) Status post sleeve gastrectomy: Comment: 03/03/22 Code(s): Z90.3 - Acquired absence of stomach [part of] Plan Pt feels that she is doing much better now and has no questions/concerns. she will continue f/u with Rosalia BORJA Telehealth Telehealth Location of provider rendering services: practice address Location of patient: address on file Patient Identification confirmed using: Name, : Yes Telehealth method: voice only Patient verbally consented to treatment: Yes Patient verbally consented to billing insurance company: Yes Patient informed of any privacy concerns related to visit: Yes Minutes spent on Phone/Video with Pt.: 15 Coding Level of Care Code Nutr Indiv Subseq (21749) Diagnoses Status post sleeve gastrectomy Z90.3 Time Spent (min) 15
== END 2024-02-23 14:16 | disposition home or self-care (01) ==
LOC: HO.HBS 13:27
PROVIDERS: PCP Family Medicine; Visit Provider Dietitian, Registered
DX: Z90.3 Acquired absence of stomach [part of] (principal)

== ENCOUNTER → 2024-02-23 13:27 | Outpatient (BNVA) | payer OTHER, SELFPAY | PROVIDERS: PCP Family Medicine; Visit Provider Dietitian, Registered | DX: Z90.3 Acquired absence of stomach [part of] (principal); Z98.84 Bariatric surgery status | CPT/HCPCS: 97803 ==

== ENCOUNTER 2025-03-14 09:35 | Outpatient (AMB) | payer OTHER, SELFPAY ==
--- NOTE | 2025-03-14 09:54 | AM.OFFWIN_ITS ---
Intake Vital Signs 03/14/25 09:55 Weight 244 lb BP 118/74 Blood Pressure Location Rt brachial Position Sitting Pulse 84 Pulse Source Pulse Oximeter Temp 98.5 F Temp Source Oral Pulse Oximetry (%) 98 Oxygen Delivery Method Room Air Intake Visit Reasons: PE Sinus infection? Intake Note: Patient here for sinus pressure and cough that has been present for about 3 days but has been congested for at least 6 months. pt is 6 months . Patient Tobacco Use Status: Never used Tobacco Allergies Penicillins [PENICILLINS] Allergy (Intermediate, Verified 03/14/25 09:55) HIVES ondansetron [From ZOFRAN] Allergy (Mild, Verified 03/14/25 09:55) HIVES penicillin V Allergy (Unknown, Verified 03/14/25 09:55) hives Do you need a note to return to daycare/school/sports/work: No HPI HPI Comments History of Present Illness Details History of Present Illness - The patient is a 29-year-old female pr esenting with sinus pressure, congestion, and a cough. - She has experienced frontal sinus pres sure and pain for three days and has been congested since her began six months ago. - Symptoms are accompanied by mucus prod uction, cough, and sore throat, but without fever, ear pain, shortness of breath, or wheezing beyond her baseline. - The patient attempted symptom relief w ith Tylenol (acetaminophen) but has not used a neti pot or nasal corticosteroids for this episode. - She is currently 24 weeks into her pre gnancy. Physical Exam General: Cooperative, healthy appearing, comfortable, no acute distress and well developed Orientation: Patient oriented x3 Limitations: No limitations Head: Normal to inspection Ears: Hearing grossly normal bilaterally, EAC with cerumen bilaterally Nose: Normal External nose present, nares normal, no congestion noted Face and sinus: Tenderness noted in frontal sinus bilaterally Eyes: Appearance normal, both eyes and all related structures Neck: Normal visual inspection and Yes full ROM Respiratory: Normal respiratory effort and able to speak in complete sentences. Skin: No rashes or lesions noted Neuro: Patient oriented x3 Extremities: Normal to inspection [facility] Medical History Steatosis, liver Low back pain GERD (gastroesophageal reflux disease) Morbid obesity Back pain Hip pain Surgical History Status post sleeve gastrectomy History of cholecystectomy History of wisdom tooth extraction Family History Brother Mental health disorder Mother No problems noted. Father No problems noted. Brother Hypertension Son No problems noted. Daughter No problems noted. Social History Household Members: Significant Other and Family Housing: Apartment Are you a primary patient care technician to a significant other at home: Yes (8 month old baby) Do you presently have visiting nurse or other home services: No Alcohol intake: current Alcohol intake frequency: does not drink Comment: aware of trip hazard Patient Tobacco Use Status: Never used Tobacco e-Cigarette/Vaping Use: Never Used Second Hand Smoke Exposure: No service: No Current occupational status: employed Gender identity: Female Cognitive needs: No Hearing needs: No Vision needs: Yes (Glasses) Review of Systems Const All systems reviewed & are unremarkable except as noted in HPI and below Physical Exam Vital Signs: Last Vital Signs Temp 98.5 F 03/14/25 09:55 Pulse 84 03/14/25 09:55 BP 118/74 03/14/25 09:55 Pulse Ox 98 03/14/25 09:55 Oxygen Delivery Method Room Air 03/14/25 09:55 Assessment & Plan Assessment & Plan (1) Sinusitis, acute frontal: Code(s): J01.10 - Acute frontal sinusitis, unspecified Qualifiers: Recurrence: non-recurrent Qualified Code(s): J01.10 - Acute frontal sinusitis, unspecified Plan: The patient has been diagnosed with sinusitis and impacted cerumen. Flonase has been prescribed to alleviate nasal congestion and sinus pressure, with instructions on its safe use during and proper application technique demonstrated. A neti pot has also been recommended for nasal irrigation, with distilled water. If no improvement in her symptoms after 2 weeks, she can return to the clinic, as there is a small chance it could be bacterial. Patient was informed and verbally consented to the use of an ambient scribe for clinic note documentation during this visit. (2) Impacted cerumen, bilateral: Code(s): H61.23 - Impacted cerumen, bilateral Plan: For impacted cerumen, Debrox drops will be used to assist in earwax removal. The patient is advised to follow up if symptoms do not improve or discomfort arises. Attempted to remove with curette but pt not tolerating. Medications: New fluticasone propionate 50 mcg/actuation administer into each nostril 1 spray intranasal Q12H 16 grams 0RF Coding Level of Care Code Est Pt Level 4 (89737) Diagnoses Acute non-recurrent frontal sinusitis J01.10 Recurrence: non-recurrent Impacted cerumen, bilateral H61.23
[2025-03-14 09:55] VITALS: BP 118/74; PULSE 84; TEMP 36.9; O2SAT 98
--- OUTSIDE RECORDS SUMMARY | 2025-03-14 10:41 | XMS_ITS | Encounter Summary ---
Author Organization [facility] Address [address] [place] [address] Phone Care Team Providers Care Upper Cutter Machine Name Role Phone Dawood Chew MD Primary Care Provider [phone] Encounter Details Date Type Department Care Team (Late st Contact Info) Description 04/04/2013 Documentation [facility] Family Medicine [address] [place], [place] [phone] Family Medicine, Physician [address] [phone] Social History Tobacco Use Types Packs/Day Years Used Date Smoking Tobacco: Never Assessed Comments Unknown Sex and Gender Information Value Date Recorded Sex Assigned at Not on file Legal Sex Female 5:00 PM EDT Gender Identity Not on file Sexual Orientation Not on file documented as of this encounter Plan of Treatment Not on file documented as of this encounter Visit Diagnoses Not on filedocumented in this encounter Care Teams Upper Cutter Machine Relationship Specialty Start Date End Date Dawood Chew MD [address] [place] [address] PCP - General 07/09/17 02/10/23 documented as of this encounter
--- OUTSIDE RECORDS SUMMARY | 2025-03-14 10:41 | XMS_ITS | Encounter Summary ---
Author Organization [facility] Address [address] [place] [address] Phone Care Team Providers Care Ad Clerk Name Role Phone Dawood Chew MD Primary Care Provider [phone] Encounter Details Date Type Department Care Team (Late st Contact Info) Description 07/15/2017 Conversion Encounter [facility] [address] [place] [address] Social History Tobacco Use Types Packs/Day Years Used Date Smoking Tobacco: Never Comments:Never smoker Comments Unknown Sex and Gender Information Value Date Recorded Sex Assigned at Not on file Legal Sex Female 5:00 PM EDT Gender Identity Not on file Sexual Orientation Not on file documented as of this encounter Plan of Treatment Not on file documented as of this encounter Visit Diagnoses Not on filedocumented in this encounter Care Teams Ad Clerk Relationship Specialty Start Date End Date Dawood Chew MD [address] [place] [address] PCP - General 07/09/17 02/10/23 documented as of this encounter
--- OUTSIDE RECORDS SUMMARY | 2025-03-14 10:41 | XMS_ITS | Clinical Summary ---
Author Organization [facility] Address [address] [place] [address] Care Team Providers Care Product Trainer Name Role Phone Unavailable Primary Care Provider Unavailabl e Surgical History Surgery Date Site/Laterality Comments WISDOM TOOTH EXTRACTION PROCEDURE: HISTORICAL WISDOM TEETH EXTRACTION CHOLECYSTECTOMY PROCEDURE: LAPAROSCOPY, CHOLECYSTECTOMY; COMMENT: January 2020 Medical History Medical History Date Comments Anxiety DX:Anxiety Family History Medical History Relation Name Comments Other: 3 brothers Brother Heart attack Father No Known Problems Maternal Grandfather un known No Known Problems Maternal Grandmother un known No Known Problems Mother unknown hx Other: unknown cancer Mother's side aunt No Known Problems Paternal Grandfather un known No Known Problems Paternal Grandmother un known Other: healthy Sister siblings have dysplexia and learning disability Breast cancer Neg Hx Colon cancer Neg Hx Ovarian cancer Neg Hx Relation Name Status Comments Brother Alive Father Maternal Grandfather Maternal Grandmother Mother Alive Mother's side Paternal Grandfather Paternal Grandmother Alive Sister Alive Social History Tobacco Use Types Packs/Day Years Used Date Smoking Tobacco: Never Smokeless Tobacco: Never Alcohol Use Standard Drinks/Week Comments No 0 (1 standard drink = 0.6 oz pur e alcohol) Comments Unknown Sex and Gender Information Value Date Recorded Sex Assigned at Not on file Legal Sex Female 3:12 PM EST Gender Identity Not on file Sexual Orientation Not on file Obstetrics History Plan of Treatment Health Maintenance Due Date Last Done Comments Hepatitis B Vaccines (1 of 3 - 19+ 3-dose series) 2012 Cervical Cancer Screening: P ap Smear 12/08/2021 12/08/2018 COVID-19 Vaccine (2023-2 5 season) 2024 Influenza Vaccine (Season Ended) 2025 08/10/2019, 08/31/2018 DTaP,Tdap,and Td Vaccines (2 - Td or Tdap) 03/10/2029 03/10/2019 HIB Vaccines Aged Out No longer eligi ble based on patient's age to complete this topic HPV Vaccines Aged Out No longer eligi ble based on patient's age to complete this topic Hepatitis A Vaccines Aged Out No long er eligible based on patient's age to complete this topic IPV Vaccines Aged Out No longer eligi ble based on patient's age to complete this topic MMR Vaccines Aged Out No longer eligi ble based on patient's age to complete this topic Meningococcal ACWY Vaccine Aged Out N o longer eligible based on patient's age to complete this topic Meningococcal B Vaccine Aged Out No l onger eligible based on patient's age to complete this topic Pneumococcal Vaccine: Pediatrics (0 to 5 Years) and At-Risk Patients (6 to 64 Years) Aged Out No longer eligible b ased on patient's age to complete this topic RSV Immunization Patients Under 20 months Aged Out No longer eligible b ased on patient's age to complete this topic Varicella Vaccines Aged Out No longer eligible based on patient's age to complete this topic Procedures Procedure Name Priority Date/Time Associated Diagnosis Comments PAP SMEAR Routine 12/08/2018 from Last 3 Months or Most Recently Relevant to Health Maintenance Results * Pap smear (12/08/2018) 12/08/2018 Narrative HISTORICAL TESTING LAB RESULTING AGENCY - 12/12/2018 4:50 PM EST [id number] THINPREP PAP, IMAGED: NEGATIVE FOR SQUAMOUS INTRAEPITHELIAL LESION AND MALIGNANCY . FLORIDALMA MASTERSON(ASCP) (CASE ELECTRONICALLY SIGNED 12 12 2018) ADEQUACY: SATISFACTORY ENDOCERVICAL/TRANSFORMATION ZONE COMPONENT PRESENT. SOURCE: THINPREP PAP HPV IF ASCUS, CERVICAL, IMAGED CLINICAL INFORMATION: HPV IF DIAGNOSIS OF ASCUS. Z12.4, PAP HX NEG. us Yun Manzanares CNM LAB CYTOLOGY ORDERABLES Final R esult HISTORICAL TESTING LAB RESULTING AGENCY from Last 3 Months or Most Recently Relevant to Health Maintenance
--- OUTSIDE RECORDS SUMMARY | 2025-03-14 10:41 | XMS_ITS | Encounter Summary ---
Author Organization [facility] Address [address] [place] [address] Phone Care Team Providers Care Mechanic Industrial Truck Name Role Phone Dawood Chew MD Primary Care Provider [phone] Encounter Details Date Type Department Care Team (Late st Contact Info) Description 05/23/2010 Documentation [facility] Family Medicine [address] [place], [place] [phone] Family Medicine, Physician [address] [phone] Social History Tobacco Use Types Packs/Day Years [...] on filedocumented in this encounter Care Teams Mechanic Industrial Truck Relationship Specialty Start Date End Date Dawood Chew MD [address] [place] [address] PCP - General 07/09/17 02/10/23 documented as of this encounter
--- OUTSIDE RECORDS SUMMARY | 2025-03-14 10:41 | XMS_ITS | Clinical Summary ---
Author Organization [facility] Address [address] [place] [address] Phone Care Team Providers Care Wood Grinder Operator Name Role Phone Unavailable Primary Care Provider Unavailabl e Immunizations Immunization Administration Dates Next Due DTP 02/05/1999, 6,07/07/1995,02/25,1993 HPV, Quadrivalent 06/07/2008,08/10/2007,06/07/20 07 Hep A, Adult 06/14/2015 Hep A, ped/adol 07/17/2011 Hep B, ped/adol 04/12/1996,1993,1993 Hib (PRP-T) 04/12/1996, 5,02/25/1994,12/08 Influenza Split 10/19/2012,07/17/2011,07/21/2010 Influenza, intranasal, quadrivalent 09/25/2013 MMR 02/05/1999,07/07/1995 Meningococcal Conj (Menactra) MCV4P 07/18/2012,0 06/14/2006 OPV 02/05/1999, 5,02/25/1994,12/08 Td (adult) (MBL), 2 Lf tetan us toxoid, PF, adsorbed 06/08/2005 Tdap 06/16/2010 Family History Relation Name Status Comments Brother Alive Brother: Psycho logical disorder, Alive and well Father Alive Father: Sudden /SC under 55 Mother Alive Mother: Migrain es Other Family history of ADD/ADHD, Family history of Obesity, Family history of Autism, No family history of Strabismus, Family history of Hyperlipidemia, Family history of Diabetes mellitus Social History Tobacco Use Types Packs/Day Years Used Date Smoking Tobacco: Never Comments:Never smoker Comments Unknown Sex and Gender Information Value Date Recorded Sex Assigned at Not on file Legal Sex Female 5:00 PM EDT Gender Identity Not on file Sexual Orientation Not on file Last Filed Vital Signs Vital Sign Reading Time Taken Comments Blood Pressure 105/70 06/14/2015 12:00 AM EDT Pulse 79 06/14/2015 12:00 AM EDT Temperature 36.7 ??C (98 ??F) 12/21/2014 12:00 AM EST Respiratory Rate - - Oxygen Saturation - - Inhaled Oxygen Concentration - - Weight 98.2 kg (216 lb 9.6 oz) 06/14/2015 12:00 AM EDT Height 160 cm (5' 3 ) 06/14/2015 12:00 AM EDT Body Mass Index 38.37 06/14/2015 12:00 AM EDT Plan of Treatment Health Maintenance Due Date Last Done Comments Varicella Vaccines (1 of 2 - 13+ 2-dose series) 10/23/2013 DTaP,Tdap,and Td Vaccines (7 - Td or Tdap) 06/16/2020 06/16/2010, 06/08/2005, 02/05/1999, Additional history exists Influenza Vaccines (#1) 2024 09/25/20 13, 10/19/2012, 07/17/2011, Additional history exists COVID-19 Vaccine ( - 2023- season) 2024 HIB Vaccines Completed 04/12/1996, 07/1995, 02/25/1994, Additional history exists Hepatitis B Vaccines Completed 04/12/1996, 1993, 1993 IPV Vaccines Completed 02/05/1999, 07/1995, 02/25/1994, Additional history exists MMR Vaccines Completed 02/05/1999, 07/07/1995 HPV Vaccines Completed 06/07/2008, 07/30, 06/07/2007 Meningococcal Vaccine Completed 07/18/2012, 006 Hepatitis A Vaccines Completed 06/14/2015, 07/17/20 11 Men B Vaccine Aged Out No longer elig ible based on patient's age to complete this topic Pneumococcal Vaccine Aged Out No long er eligible based on patient's age to complete this topic Procedures * Due to [place] state law, this organization might not be sharing sensitive test results. Procedure Name Priority Date/Time Associated Diagnosis Comments CHLAMYDIA AND GONORRHEA, AMPLIFIED Routine 06/17/2015 2:59 PM EDT from Last 3 Months or Most Recently Relevant to Health Maintenance Results * Due to [place] MEPS Real-Time law, this organization might not be sharing sensitive test results. * Chlamydia and Gonorrhoea, Amplified (06/17/2015 2:59 PM EDT) Pathologist [facility] URINE GC AMP PROBE NEGATIVE [facility] Comment: No Neisseria Gonorrhoeae RNA detected in this patient's sample (REFERENCE RANGE/NORMAL VALUE: NOT DETECTED) NOTE: This test uses booky-mediated amplification method to detect rRNA from C.Trachomatis and N.Gonorrhoeae. A negative result does not preclude infection. In the case of a negative urine result, testing of an endocervical(female) or urethral(male) specimen is recommended if there is high clinical suspicion of infection. The performance characteristics of this test have not been evaluated in children. The Aptima Combo2 assay is not intended for the evaluation of suspected sexual abuse or for other medico-legal indications. The ordering provider should assess if the patient had consensual sex without risk of sexual abuse. Consult the [facility] if needed. Contact phone number . Therapeutic failure or success cannot be determined with the Aptima Combo2 assay since nucleic acid may persist following appropriate antimicrobial therapy. The Centers for Disease Control and Prevention (CDC) recommends confirmatory retesting using culture or a different nucleic acid amplification test when positive results occur, if indicated. Testing performed or reported by [facility], a Service of [facility], [address] [place] [id number] Edenilson Yao MD, PhD, [employer] URINE CHLAMYDIA AMP PROBE NEGATIVE [facility] Comment: No Chlamydia Trachomatis RNA detected in this patient's sample (REFERENCE RANGE/NORMAL VALUE: NOT DETECTED) 06/17/2015 2:59 PM EDT [facility] - 06/17/2015 2:59 PM EDT URINE CHLAMYDIA GC AMP PROBE us Rhea Hernández NP LAB MICROBIOLOGY - GENERAL ORDER RAFAEL Final Result [facility] [address] [place] [id number], [place] from Last 3 Months or Most Recently Relevant to Health Maintenance
--- OUTSIDE RECORDS SUMMARY | 2025-03-14 10:41 | XMS_ITS | Encounter Summary ---
Author Organization [facility] Address [address] [place] [address] Phone Care Team Providers Care Machinery Mechanic Name Role Phone Dawood Chew MD Primary Care Provider [phone] Encounter Details Date Type Department Care Team (Late st Contact Info) Description 04/04/2013 Documentation [facility] [place] Family Medicine [address] [place], [place] [phone] Family Medicine, Physician [address], [place] [phone] Social History Tobacco Use Types Packs/Day Years [...] on filedocumented in this encounter Care Teams Machinery Mechanic Relationship Specialty Start Date End Date Dawood Chew MD [address] [facility] [place] [address] PCP - General 07/09/17 02/10/23 documented as of this encounter
== END 2025-03-14 10:28 | disposition home or self-care (01) ==
PROVIDERS: PCP Family Medicine; Visit Provider Physician Assistant
DX: J01.10 Acute frontal sinusitis, unspecified (principal); H61.23 Impacted cerumen, bilateral

== ENCOUNTER → 2025-03-14 09:35 | Outpatient (BNVA) | payer OTHER, SELFPAY | PROVIDERS: PCP Family Medicine; Visit Provider Physician Assistant | DX: J01.10 Acute frontal sinusitis, unspecified (principal); H61.23 Impacted cerumen, bilateral | CPT/HCPCS: 99212 ==

== ENCOUNTER 2025-08-23 13:39 | Outpatient (AMB) | payer OTHER, SELFPAY ==
--- NOTE | 2025-08-23 13:49 | MHC.PC.OV ---
Vital Signs 08/23/25 13:54 Height 5 ft 2.5 in Weight 231 lb 8 oz BMI 41.7 BP 118/69 Blood Pressure Location Rt brachial Position Sitting Respiration 16 Pulse 93 Pulse Source Pulse Oximeter Temp 98.4 F Temp Source Oral Pulse Oximetry (%) 99 Oxygen Delivery Method Room Air Intake Visit Reasons: D/C from [facility] [place] for shortness of breath. Intake Note: patient here for EDF from [facility] [place] for shortness of breath Silk Screen Printer Required: No Is last menstrual period known: No (she delivered her baby on 07/10/2025) Post menopausal: No Patient : No Allergies Penicillins (PENICILLINS) Allergy (Intermediate, Verified 08/23/25 13:52) HIVES penicillin V Allergy (Unknown, Verified 08/23/25 13:52) hives Medication List - Last Reconciled 08/23/25 by Mil Babin MD No Known Home Meds Tobacco use date assessed: 08/23/25 Dental Screening Dental Screen Date: 08/23/25 Did you have a dental visit in the last 12 months?: No Did you have a dental problem in the last 6 months where you did not have access to dental care?: No Was dental information given to patient?: Patient has dentist HPI D/C from [facility] [place] for shortness of breath. HPI Details 29 y/o female presents to f/u ED visit for shortness of breath. She had complaints of chest pain, headaches. patient who was seen in mid June about a week after delivery with fever of unknown origin. These resolved without finding any source. She returned in July to the emergency department for complaints of shortness of breath, chest pain and headaches. Patient notes that in workup she was found to have left ventricular enlargement and also says she had pancreatitis Had left AMA due to the wait times. Denies any fevers. Reports ongoing shortness of breath, headache, chest pain. [facility] Medical History Steatosis, liver Low back pain GERD (gastroesophageal reflux disease) Morbid obesity Back pain Hip pain Surgical History Status post sleeve gastrectomy History of cholecystectomy History of wisdom tooth extraction Family History Brother Mental health disorder Mother No problems noted. Father No problems noted. Brother Hypertension Son No problems noted. Daughter No problems noted. 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 1. Little interest or pleasure in doing things: not at all 2. Feeling down, depressed, or hopeless: not at all 3. Trouble falling or staying asleep, or sleeping too much: not at all 4. Feeling tired or having little energy: not at all 5. Poor appetite or overeating: not at all 6. Feeling bad about yourself - or that you are a failure or have let yourself or your family down: not at all 7. Trouble concentrating on things, such as reading the newspaper or watching television: not at all 8. Moving or speaking so slowly that other people could have noticed. Or the opposite - being so fidgety or restless that you have been moving around a lot more than usual: not at all 9. Thoughts that you would be better off or of hurting yourself in some way: not at all Total score: 0 Source: Developed by Drs. Domingo Muro, Rhonda Cat, Adalberto Meyer and colleagues, with an educational olga from [employer]. Thrive Questionnaire Date Thrive assessed: 02/11/24 I am a: Patient What is your living situation today?: I have a steady place to live Within the past 12 months, did the food you bought not last and you didn't have the money to get more?: I choose not to answer this question Within the past 12 months, did you worry whether your food would run out before you got money to buy more?: I choose not to answer this question Do you have trouble paying for medicines?: I choose not to answer this question Do you have trouble getting transportation to medical appointments?: I choose not to answer this question Do you have trouble paying your heating and electricity bill?: I choose not to answer this question Do you have trouble taking care of your child, family member or friend?: No Do you have trouble with day-to-day activities such as bathing, preparing meals, shopping, managing finances, etc.?: No Are you currently unemployed and looking for a job?: I choose not to answer this question Are you interested in more education?: No Please select the resources that you would like help with: None Currently or been in a relationship where the following occur: No concerns reported THRIVE Score: 0 AUDIT C Alcohol Use Questionnaire (AUDIT-C) 1. How often do you have a drink containing alcohol?: Never Total Score: 0 MAGDALENO-7 AMB Questionnaire MAGDALENO-7 Date MAGDALENO - 7 assessed: 02/11/24 Feeling nervous, anxious, or on edge: 1 = Several days Not being able to stop or control worryin = Several days Worrying too much about different things: 0 = Not at all Trouble relaxin = Not at all Being so restless that it is hard to sit still: 0 = Not at all Becoming easily annoyed or irritable: 0 = Not at all Feeling afraid as if something awful might happen: 0 = Not at all Total MAGDALENO-7 score (0-4 normal; 5-9 mild; 10-14 moderate; 15-21 severe): 2 Source: Developed by Drs. Domingo Muro, Rhonda Cat, Adalberto Meyer and colleagues, with an educational olga from [employer]. Review of Systems Const Denies chills, Denies fatigue, Denies fever(s), Denies headache(s) and Denies weakness ENT Denies dizziness and Denies headache(s) Card Denies dyspnea Resp Denies cough, Denies dyspnea, Denies wheezing and Denies other (shortness of breath) Musc Denies numbness and Denies tingling Neuro Denies dizziness, Denies headache(s), Denies numbness, Denies tingling and Denies weakness Psych Denies anxiety and Denies depression Endo Denies fatigue Aller/Immun Denies wheezing Physical exam (Primary Care) Vital Signs: Last Vital Signs Temp 98.4 F 08/23/25 13:54 Pulse 93 08/23/25 13:54 Resp 16 08/23/25 13:54 BP 118/69 08/23/25 13:54 Pulse Ox 99 08/23/25 13:54 Oxygen Delivery Method Room Air 08/23/25 13:54 BMI result Body Mass Index 41.7 Tobacco/Smoking Status: Tobacco use Status Tobacco use date assessed 08/23/25 08/23/25 13:56 Patient Tobacco Use Status Never used Tobacco 08/23/25 13:51 e-Cigarette/Vaping Use Never Used 08/23/25 13:51 PHQ-9: PHQ-9 Score PHQ-9: Total score 0 08/23/25 14:00 Thrive Assessment: Date of Thrive Assessment Date Thrive assessed 02/11/24 08/23/25 13:51 Currently or been in a relationship where the following occur: No concerns reported Const General: well developed; No acute distress Nutritional Appearance: well nourished Orientation/consciousness: patient oriented x3 HENMT Head: Yes normocephalic and Yes atraumatic Eyes General: appearance normal, both eyes and all related structures Pupils: Equal, round and reactive pupils present EOM: EOMs intact bilaterally Resp Effort & Inspection: normal respiratory effort Neuro General: patient oriented x3 and gait normal Cranial nerves: Yes Equal, round and reactive pupils present Psych Affect: normal affect Coding Level of Care Code Tele Est Pt Level 4 (61218) Diagnoses Shortness of breath R06.02 Chest pain R07.[address] of the abdomen R93.5 Headache R51.9 Assessment & Plan Assessment & Plan (1) Shortness of breath: Code(s): R06.02 - Shortness of breath Category: Medical (2) Chest pain: Code(s): R07.9 - Chest pain, unspecified Category: Medical (3) Abnormal CT of the abdomen: Code(s): R93.5 - Abnormal findings on diagnostic imaging of other abdominal regions, including retroperitoneum Category: Medical (4) Headache: Code(s): R51.9 - Headache, unspecified Category: Medical Plan patient who was seen in mid June about a week after delivery with fever of unknown origin. These resolved without finding any source. Patient notes that in initial June workup she was found to have left ventricular enlargement with normal EF and CT abdomen pelvis did show subtle pancreatic soft tissue stranding with question of pancreatitis. I do not have a lipase level available. CTA ruled out pulmonary emboli. She returned in July to the emergency department for complaints of shortness of breath, chest pain and headaches. Ruled out for ACS Chest x-ray negative Patient left AMA Per patient she was advised for a three-month follow-up with Cardiology at [facility] [place] regarding left ventricular dilatation. She has [id number] left ventricular dilatation on echocardiogram with normal EF. EKG today shows: Normal sinus rhythm, normal axis, intervals, no hypertrophy, no ST T-wave changes. Normal EKG. Discussed with patient that this is likely physiologic change from her however made a referral to Cardiology at [facility] [place] as per their recommendation. CT the abdomen did show some stranding around the pancreas and question of pancreatitis. May have gallstone pancreatitis other underlying cause. Checking lipase. Patient is in no distress today. Advised she hydrate well and get regular meals. Will call patient if lipase is elevated and we discuss referral gastroenterology needed. Patient is getting some mild posterior headaches. Increase hydration Ice/heat at posterior neck head Can use Tylenol or ibuprofen Call or return to office if worsening improving Orders: Orders NT Pro B Type Natriuretic Pept Today I50.9 - Heart failure, unspecified, R06.02 - Shortness of breath Comprehensive [place]. Panel Fast Today R06.02 - Shortness of breath, Z00.00 - Encounter for general adult medical examination without abnormal findings Complete Blood Count Auto Diff Today R06.02 - Shortness of breath, Z00.00 - Encounter for general adult medical examination without abnormal findings Lipase Today R11.0 - Nausea UA CC w/rflx Micro + Cult Today R06.02 - Shortness of breath, Z00.00 - Encounter for general adult medical examination without abnormal findings AMB EKG-In Office Today R06.02 - Shortness of breath Referrals Cardiology Referral I51.7 - Cardiomegaly, R06.02 - Shortness of breath
[2025-08-23 13:54] VITALS: BP 118/69; PULSE 93; RESP 16; TEMP 36.9; O2SAT 99; BMI 41.7
--- OUTSIDE RECORDS SUMMARY | 2025-08-23 18:12 | XMS_ITS | Encounter Summary ---
Author Organization [facility] Address [address] [place] [address] Phone Care Team Providers Care Decorator Lighting Fixtures Name Role Phone Dawood Chew MD Primary Care Provider [phone] Encounter Details Date Type Department Care Team (Late st Contact Info) Description 05/23/2010 Documentation [facility] [place] [facility] [address] [place], [place] [id number] Family Medicine, Physician [address] [phone] Social History Tobacco Use Types Packs/Day Years [...] on filedocumented in this encounter Care Teams Decorator Lighting Fixtures Relationship Specialty Start Date End Date Dawood Chew MD [address] [facility] [place] [address] PCP - General 07/09/17 02/10/23 documented as of this encounter
--- OUTSIDE RECORDS SUMMARY | 2025-08-23 18:12 | XMS_ITS | Clinical Summary ---
Author Organization [facility] Address [address] [place] [address] Phone Care Team Providers Care Auto Radiator Mechanic Name Role Phone Unavailable Primary Care Provider [...] Alive and well Father Alive Father: Sudden /IN under 55 Mother Alive Mother: Migrain es [...] 77 06/14/2015 12:00 AM EDT Temperature 36.7 C (98 F) 12/21/2014 12:00 AM EST Respiratory Rate - [...] 02/05/1999, Additional history exists Influenza Vaccines (#1) 2025 09/25/20 13, 10/19/2012, 07/17/2011, Additional history exists COVID-19 Vaccine ( - season) 2025 HIB Vaccines Completed 04/12/1996, 07/1995, 02/25/1994, Additional [...] complete this topic Procedures * Due to [place] state law, this organization might not be sharing sensitive test results. Procedure Name Priority Date/Time Associated Diagnosis Comments CHLAMYDIA AND GONORRHEA, AMPLIFIED Routine 06/17/2015 2:59 PM EDT from Last 3 Months or Most Recently Relevant to Health Maintenance Results * Due to [place] state law, this organization might not be sharing sensitive test results. * Chlamydia and Gonorrhoea, Amplified (06/17/2015 2:59 PM EDT) URINE GC AMP PROBE NEGATIVE [facility] Comment: No Neisseria Gonorrhoeae RNA detected in this patient's sample (REFERENCE RANGE/NORMAL VALUE: NOT DETECTED) NOTE: This test uses plant electrician-mediated amplification method to detect rRNA from C.Trachomatis [...] without risk of sexual abuse. Consult the [facility] if needed. Contact phone number . Therapeutic failure or success cannot be determined with the Aptima Combo2 assay since nucleic acid may persist following appropriate antimicrobial therapy. The Centers for Disease Control and Prevention (CDC) recommends confirmatory retesting using culture or a different nucleic acid amplification test when positive results occur, if indicated. Testing performed or reported by [facility], a Service of [facility], [address] [place] [address] Edenilson Yao MD, PhD, Nurse Charge Rn URINE CHLAMYDIA AMP PROBE NEGATIVE [facility] Comment: No Chlamydia Trachomatis RNA detected in this patient's sample (REFERENCE RANGE/NORMAL VALUE: NOT DETECTED) 06/17/2015 2:59 PM EDT Narrative [facility] - 06/17/2015 2:59 PM EDT URINE CHLAMYDIA GC AMP PROBE us Rhea Hernández NP LAB MICROBIOLOGY - GENERAL ORDER RAFAEL Final Result [facility] [address] [place] [address], [place] from Last 3 Months or Most Recently Relevant to Health Maintenance
--- OUTSIDE RECORDS SUMMARY | 2025-08-23 18:12 | XMS_ITS | Encounter Summary ---
Author Organization [facility] Address [address] [place] [address] Phone Care Team Providers Care Real Estate Instructor Name Role Phone Dawood Chew MD Primary Care Provider [phone] Encounter Details Date Type Department Care Team (Late st Contact Info) Description 07/15/2017 Conversion Encounter [facility] [place] [address] [place] [address] Social History Tobacco Use Types Packs/Day Years [...] on filedocumented in this encounter Care Teams Real Estate Instructor Relationship Specialty Start Date End Date Dawood Chew MD [address] [place] [address] PCP - General 07/09/17 02/10/23 documented as of this encounter
--- OUTSIDE RECORDS SUMMARY | 2025-08-23 18:12 | XMS_ITS | Encounter Summary ---
Author Organization [facility] Address [address] [place] [address] Phone Care Team Providers Care Proc Tech Name Role Phone Dawood Chew MD Primary Care Provider [phone] Encounter Details Date Type Department Care Team (Late st Contact Info) Description 04/04/2013 Documentation [facility] [place] Family Medicine [address] [place], [place] [phone] Family Medicine, Physician [address] [place] [phone] Social History Tobacco Use Types Packs/Day Years [...] on filedocumented in this encounter Care Teams Proc Tech Relationship Specialty Start Date End Date Dawood Chew MD [address] [place] [address] PCP - General 07/09/17 02/10/23 documented as of this encounter
--- OUTSIDE RECORDS SUMMARY | 2025-08-23 18:12 | XMS_ITS | Encounter Summary ---
Author Organization [facility] Address [address] [place] [address] Phone Care Team Providers Care Machine Operator Picker Name Role Phone Dawood Cehw MD Primary Care Provider [phone] Encounter Details Date Type Department Care Team (Late st Contact Info) Description 04/04/2013 Documentation [facility] Family Medicine [address] [place], [place] [phone] Family Medicine, Physician [address] [phone] Social History Tobacco Use Types Packs/Day Years [...] on filedocumented in this encounter Care Teams Machine Operator Picker Relationship Specialty Start Date End Date Dawood Chew MD [address] [facility] [place] [address] PCP - General 07/09/17 02/10/23 documented as of this encounter
== END 2025-08-23 14:27 | disposition home or self-care (01) ==
LOC: HO.HMCFM 13:40
PROVIDERS: PCP Family Medicine; Visit Provider Family Medicine
DX: R06.02 Shortness of breath (principal); R07.9 Chest pain, unspecified; R93.5 Abnormal findings on diagnostic imaging of other abdominal regions, including retroperitoneum; R51.9 Headache, unspecified